=== PATIENT | female | born 1980 | race Two or more races ===

== ENCOUNTER 2017-01-08 12:56 | Emergency (ER) | payer MEDICAID ==
[~2017-01-08] VITALS: Ht 167.6 cm; Wt 99.8 kg
[2017-01-08 13:46] LABS: Basophils # (auto) 0 uL; Basophils % (auto) 0.8 % (0.0-2.0); Eosinophils # (auto) 0.2 uL; Hematocrit 38.1 % (36.0-46.0); Hemoglobin 12.9 g/dL (12.2-16.2); Lymphocytes # (auto) 1.3 uL; Lymphocytes % (auto) 22.6 % (10.0-50.0); Mean Corpuscular Hemoglobin 30.6 pg (28.0-32.0); Mean Corpuscular Hgb Conc. 33.8 g/dL (32.0-36.0); Mean Corpuscular Volume 90.5 fL (80.0-100.0); Mean Platelet Volume 9.3 fL (6.9-10.8); Monocytes # (auto) 0.4 uL; Neutrophils % (auto) 66.6 % (37.0-80.0); Nucleated Red Blood Cells % 0.1 %; Platelet Count (auto) 208 10^3/uL (140-450); Red Cell Distribution Width 13.2 % (11.8-14.3)
[2017-01-08 13:54] LABS: B-Type Natriuretic Peptide 3.24 pg/mL (0-100)
[2017-01-08 13:56] LABS: Albumin 3.5 g/dL (3.4-5.0); Alkaline Phosphatase 69 U/L (45-117); Anion Gap 7 (5-15); Aspartate Aminotransferase 58 U/L (15-37); BUN/Creatinine Ratio 22.5; Bilirubin, Total 0.8 mg/dL (0.2-1.0); Blood Urea Nitrogen 16 mg/dL (7-18); Calcium 8.5 mg/dL (8.5-10.1); Carbon Dioxide 24 mmol/L (21-32); Chloride 109 mmol/L (98-107); GFR African American 121 mL/min; GFR Non-African American 100 mL/min; Glucose 108 mg/dL (74-106); Magnesium 2.6 mg/dL (1.6-2.6); Potassium 3.5 mmol/L (3.5-5.1); Sodium 140 mmol/L (136-145); Total Protein 6.9 g/dL (6.4-8.2)
[2017-01-08 14:50] VITALS: BP 149/66
== END 2017-01-08 15:18 | disposition home or self-care (01) ==
LOC: ER 12:56 → EDBD 12:56 → ER 15:18
DX: R07.89 Other chest pain (principal); R06.02 Shortness of breath; M79.89 Other specified soft tissue disorders; Z98.51 Tubal ligation status; Z59.0 Homelessness
CPT/HCPCS: 36415; 71020; 80053; 83735; 83880; 84484; 85025; 93005

== ENCOUNTER 2017-04-16 00:12 | Emergency (ER) | payer MEDICAID ==
[~2017-04-16] VITALS: Ht 167.6 cm; Wt 99.8 kg
[2017-04-16 01:03] LABS: Basophils # (auto) 0.2 uL; Basophils % (auto) 1.3 % (0.0-2.0); Eosinophils # (auto) 0.1 uL; Eosinophils % (auto) 0.6 % (0.0-7.0); Hematocrit 40.3 % (36.0-46.0); Hemoglobin 13.6 g/dL (12.2-16.2); Lymphocytes # (auto) 0.9 uL; Lymphocytes % (auto) 7.8 % (10.0-50.0); Mean Corpuscular Hemoglobin 30.4 pg (28.0-32.0); Mean Corpuscular Hgb Conc. 33.6 g/dL (32.0-36.0); Mean Corpuscular Volume 90.5 fL (80.0-100.0); Monocytes # (auto) 0.7 uL; Monocytes % (auto) 6.2 % (0.0-12.0); Neutrophils # (auto) 9.8 uL; Neutrophils % (auto) 84.1 % (37.0-80.0); Platelet Count (auto) 242 10^3/uL (140-450); Red Blood Cells 4.46 10^6/uL (4.0-5.20); Red Cell Distribution Width 14.4 % (11.8-14.3); White Blood Cell 11.6 10^3/uL (4.4-10.8)
[2017-04-16 01:13] LABS: Albumin 3.9 g/dL (3.4-5.0); BUN/Creatinine Ratio 14.3; Calcium 8.6 mg/dL (8.5-10.1)
[2017-04-16 01:15] LABS: Bilirubin, Total 0.4 mg/dL (0.2-1.0); Total Protein 7.4 g/dL (6.4-8.2)
[2017-04-16] MEDS ORDERED: LIDOCAINE 1% HCL (LOCAL ANESTH.) INJ 20ML MDV ONE (06:37)
[2017-04-16] MEDS ORDERED: KETOROLAC TROMETH 60MG/2ML VIAL IM ONE ×2 (06:41→06:45)
[2017-04-16 07:50] VITALS: BP 134/86
== END 2017-04-16 07:57 | disposition home or self-care (01) ==
LOC: EDBD 00:12 → ER 00:13
DX: S01.01XA Laceration without foreign body of scalp, initial encounter (principal); S01.81XA Laceration without foreign body of other part of head, initial encounter; S16.1XXA Strain of muscle, fascia and tendon at neck level, initial encounter; S50.12XA Contusion of left forearm, initial encounter; Z98.51 Tubal ligation status; Y08.89XA Assault by other specified means, initial encounter; Y93.89 Activity, other specified; Y99.8 Other external cause status; Y92.89 Other specified places as the place of occurrence of the external cause
CPT/HCPCS: 12002; 12013; 36415; 70450; 70486; 72125; 80053; 80320; 84702; 85025; 93005; 96372; 99285; J1885; J2001

== ENCOUNTER 2017-04-28 20:13 | Emergency (ER) | payer MEDICAID ==
[~2017-04-28] VITALS: Ht 167.6 cm; Wt 99.8 kg
[2017-04-28 20:20] VITALS: BP 108/62
[2017-04-28 21:07] LABS: Basophils # (auto) 0.1 uL; Basophils % (auto) 0.4 % (0.0-2.0); Eosinophils # (auto) 0.1 uL; Eosinophils % (auto) 0.4 % (0.0-7.0); Hematocrit 37.8 % (36.0-46.0); Hemoglobin 12.6 g/dL (12.2-16.2); Lymphocytes # (auto) 1.6 uL; Lymphocytes % (auto) 7.7 % (10.0-50.0); Mean Corpuscular Hemoglobin 29.5 pg (28.0-32.0); Mean Corpuscular Hgb Conc. 33.3 g/dL (32.0-36.0); Mean Corpuscular Volume 88.7 fL (80.0-100.0); Monocytes # (auto) 0.9 uL; Monocytes % (auto) 4.6 % (0.0-12.0); Neutrophils # (auto) 17.5 uL; Neutrophils % (auto) 86.9 % (37.0-80.0); Platelet Count (auto) 350 10^3/uL (140-450); Red Blood Cells 4.27 10^6/uL (4.0-5.20); Red Cell Distribution Width 14.6 % (11.8-14.3); White Blood Cell 20.1 10^3/uL (4.4-10.8)
[2017-04-28 21:29] LABS: Albumin 3.5 g/dL (3.4-5.0); BUN/Creatinine Ratio 12.7; Bilirubin, Total 0.4 mg/dL (0.2-1.0); Calcium 8.8 mg/dL (8.5-10.1); Potassium 3.5 mmol/L (3.5-5.1); Total Protein 7.6 g/dL (6.4-8.2)
== END 2017-04-28 21:46 | disposition left against medical advice (07) ==
LOC: ER 20:13
DX: H57.8 Other specified disorders of eye and adnexa (principal); Z53.21 Procedure and treatment not carried out due to patient leaving prior to being seen by health care provider
CPT/HCPCS: 36415; 80053; 84702; 85025

== ENCOUNTER 2017-05-12 09:26 | Emergency (ER) | payer MEDICAID ==
[~2017-05-12] VITALS: Ht 167.6 cm; Wt 81.6 kg
[2017-05-12 09:30] VITALS: BP 120/84
== END 2017-05-12 10:12 | disposition home or self-care (01) ==
LOC: ER 09:26
DX: S01.81XD Laceration without foreign body of other part of head, subsequent encounter (principal); X58.XXXD Exposure to other specified factors, subsequent encounter

== ENCOUNTER 2018-10-18 00:44 | Emergency (ER) | payer MEDICAID ==
[~2018-10-18] VITALS: Ht 167.6 cm; Wt 99.8 kg
[2018-10-18 01:22] VITALS: BP 128/79
== END 2018-10-18 03:57 | disposition left against medical advice (07) ==
LOC: ER 00:46
DX: S30.860A Insect bite (nonvenomous) of lower back and pelvis, initial encounter (principal); L02.31 Cutaneous abscess of buttock; Z53.21 Procedure and treatment not carried out due to patient leaving prior to being seen by health care provider; W57.XXXA Bitten or stung by nonvenomous insect and other nonvenomous arthropods, initial encounter; Y93.89 Activity, other specified; Y92.89 Other specified places as the place of occurrence of the external cause; Y99.8 Other external cause status

== ENCOUNTER 2022-04-04 19:47 | Emergency (ER) | payer MEDICAID ==
[~2022-04-04] VITALS: Ht 167.6 cm; Wt 120.0 kg
[2022-04-04 20:50] VITALS: BP 148/87
[2022-04-04 21:21] LABS: Basophils # (auto) 0.1 10 ^3/uL (0-0.2); Eosinophils % (auto) 1.9 % (0.0-7.0); Mean Corpuscular Volume 74.5 fL (80.0-100.0); Monocytes # (auto) 0.6 10 ^3/uL (0-1.3)
[2022-04-04 21:22] LABS: Eosinophils # (auto) 0.1 10 ^3/uL (0-0.8); Hematocrit 30.4 % (36.0-46.0); Hemoglobin 9.2 g/dL (12.2-16.2); Lymphocytes # (auto) 2.4 10 ^3/uL (0.4-5.4); Lymphocytes % (auto) 30.6 % (10.0-50.0); Mean Corpuscular Hemoglobin 22.6 pg (28.0-32.0); Mean Corpuscular Hgb Conc. 30.3 g/dL (32.0-36.0); Monocytes % (auto) 7.8 % (0.0-12.0); Neutrophils # (auto) 4.6 10 ^3/uL (1.6-8.6); Neutrophils % (auto) 58.7 % (37.0-80.0); Red Blood Cells 4.08 10^6/uL (4.0-5.20); Red Cell Distribution Width 18.3 % (11.8-14.3); White Blood Cell 7.8 10^3/uL (4.4-10.8)
[2022-04-04 21:36] LABS: INR 1.06 (0.9-1.15); Partial Thromboplastin Time 26.9 sec (24.6-33.4)
[2022-04-04 21:37] LABS: Urine Bacteria NONE SEEN /hpf (None Seen); Urine Blood 3+ /uL (Negative); Urine Mucus FEW (None Seen); Urine WBC 1135 /hpf (0 - 5); Urine WBC Clumps PRESENT /hpf (None Seen)
[2022-04-04] MEDS ORDERED: CIPR-173 PO (21:43)
[2022-04-05] MEDS ORDERED: NAP500T PO (02:18)
== END 2022-04-05 03:57 | disposition home or self-care (01) ==
LOC: ER 19:47
DX: N93.9 Abnormal uterine and vaginal bleeding, unspecified (principal); N39.0 Urinary tract infection, site not specified; R10.2 Pelvic and perineal pain; F41.9 Anxiety disorder, unspecified; F32.9 Major depressive disorder, single episode, unspecified; F10.90 Alcohol use, unspecified, uncomplicated; Z90.89 Acquired absence of other organs
CPT/HCPCS: 36415; 76856; 81001; 84702; 85025; 85610; 85730

== ENCOUNTER 2023-04-10 01:21 | Emergency (ER) | payer MEDICAID ==
[~2023-04-10] VITALS: Ht 170.2 cm; Wt 109.0 kg
[~2023-04-10 01:21] MED LIST: CIPR-173 PO; NAP500T PO
[2023-04-10 01:40] VITALS: BP 125/98; PULSE 104; RESP 20; TEMP 97; O2SAT 99
[2023-04-10 01:58] LABS: Basophils # (auto) 0 10 ^3/uL (0-0.2); Basophils % (auto) 0.6 % (0.0-2.0); Eosinophils # (auto) 0.1 10 ^3/uL (0-0.8); White Blood Cell 7.7 10^3/uL (4.4-10.8)
[2023-04-10 02:00] LABS: Hematocrit 33.5 % (36.0-46.0); Hemoglobin 10.2 g/dL (12.2-16.2); Lymphocytes # (auto) 1.1 10 ^3/uL (0.4-5.4); Lymphocytes % (auto) 14.9 % (10.0-50.0); Mean Corpuscular Hemoglobin 22.3 pg (28.0-32.0); Mean Corpuscular Hgb Conc. 30.6 g/dL (32.0-36.0); Mean Corpuscular Volume 73.1 fL (80.0-100.0); Monocytes # (auto) 0.6 10 ^3/uL (0-1.3); Monocytes % (auto) 7.5 % (0.0-12.0); Neutrophils # (auto) 5.8 10 ^3/uL (1.6-8.6); Red Blood Cells 4.58 10^6/uL (4.0-5.20); Red Cell Distribution Width 17.6 % (11.8-14.3)
[2023-04-10 02:07] LABS: Chloride 102 mmol/L (98-107); Potassium 3.9 mmol/L (3.5-5.1); Sodium 136 mmol/L (136-145)
[2023-04-10 02:08] LABS: Anion Gap 8 (5-15); Calcium 9.3 mg/dL (8.7-10.4); Carbon Dioxide 26 mmol/L (20-30)
[2023-04-10 02:13] LABS: BUN/Creatinine Ratio 12.8 (10.0-20.0); Blood Urea Nitrogen 12 mg/dL (9-23); Glucose 122 mg/dL (74-106)
[2023-04-10] MEDS ORDERED: IBUP-1454 PO (02:50)
[2023-04-10] MEDS ORDERED: MEDR10TA9 PO (02:50)
[2023-04-10 02:55] LABS: Urine Bacteria NONE SEEN /hpf (None Seen)
[2023-04-10] MEDS ORDERED: FERR-7 PO (02:56)
[2023-04-10] MEDS: KETOROLAC TROMETH 60MG/2ML VIAL IM ONE (02:56)
[2023-04-10 03:00] LABS: Urine Clarity Turbid (Clear); Urine Color Dark Red (Yellow); Urine Protein, UAD 2+ (Negative); Urine Specific Gravity 1.033 (1.001-1.035)
[2023-04-10 03:01] LABS: Urine Blood 3+ /uL (Negative); Urine Urobilinogen Normal (Negative); Urine pH 6.5 (5.0-8.0)
[2023-04-10 03:02] LABS: Urine WBC 10 /hpf (0 - 5)
== END 2023-04-10 03:16 | disposition home or self-care (01) ==
LOC: ER 01:21
DX: N93.8 Other specified abnormal uterine and vaginal bleeding (principal); D50.9 Iron deficiency anemia, unspecified; Z32.02 Encounter for pregnancy test, result negative; Z98.51 Tubal ligation status
CPT/HCPCS: 36415; 80048; 81001; 81025; 85025; 96372; 99283; J1885; J7030

== ENCOUNTER 2024-02-11 15:37 | Inpatient (IN) | payer MEDICAID ==
[~2024-02-11] VITALS: Ht 165.1 cm; Wt 129.4 kg
[~2024-02-11 15:37] MED LIST changes: +FERR-7 PO; +IBUP-1454 PO
[2024-02-11] MEDS: methylPREDNISolone SOD SUCC 125 MG/2 ML VL IV ONE (15:45)
--- NOTE | 2024-02-11 15:50 | ED.PDOC ---
History of Present Illness HPI Comments 43F BIBA w/ no prior Hx associated to the c/c of a cold flue. EMS report that the pt was picked up from home and has had a cold flu for the past 2 weeks associated w/ fever, chills, SOB, and hematemesis. Pt on scene had a SAT of 88% RA and was given 15L of O2 and it went up to 96% w/ congestion. Pt notes that she has some family members who are sick at home. PMHx of depression, anxiety, HTN and DM. SHx of Tubal Ligation, BTL and Tonsillectomy. Social Hx of second hand tobacco use, but denies alcohol and substance use. Family Hx of DM and HTN. Denies /d, CP or other associated symptom's, modifiers, or recent injuries at this time. Time Seen by MD: 15:40 Primary Care Provider: GALIK Reviewed Notes: Nurses Notes, Stiff Straw Hat Washer Notes, Medications, Allergies Allergies: Coded Allergies: NO KNOWN ALLERGIES (Unverified , 10/11/11) Home Meds Active Scripts Ferrous Sulfate (Iron) 325 Mg Tab, 325 MG PO TID for 30 Days, #90 TAB Prov:VALORIE GALAVIZ PAC 04/10/23 Ibuprofen (Ibuprofen) 600 Mg Tab, 1 TAB PO TID, #30 TAB Prov:VALORIE GALAVIZ [facility] 04/10/23 Naproxen (NAPROSYN TABLET) 500 Mg Tb, 1 TAB PO BID for 7 Days, #14 TAB 1 Refill Prov:CHASIDY TO DO 04/05/22 Ciprofloxacin Hcl (Cipro) 500 Mg Tab, 1 TAB PO BID, #14 TAB Prov:ROSANA SHELTON MD 04/04/22 Information Source: Patient, Emergency Med Personnel Mode of Arrival: EMS Severity: Moderate Timing: Weeks Duration: Since onset Prehospital treatment: None Past Medical History PAST MEDICAL HISTORY: Anxiety, Depression, DM, HTN Surgical History: BTL, Tonsillectomy, Tubal Ligation PROPERTY MANAGEMENT ACCOUNTANT History: No Pertinent PROPERTY MANAGEMENT ACCOUNTANT History Family History Family History: Reviewed,noncontributory to illness, Family hx of DM, Family hx of HTN Social History Smoker: Secondhand Alcohol: Denies ETOH Use Drugs: Denies Drug Use Lives In: Home Constitutional: reports: chills, fever; denies: diaphoresis, fatigue, malaise, sweats, weakness, others EENTM: denies: blurred vision, double vision, ear bleeding, ear discharge, ear drainage, ear pain, ear ringing, eye pain, eye redness, hearing loss, mouth pain, mouth swelling, nasal discharge, nose bleeding, nose congestion, nose pain, photophobia, tearing, throat pain, throat swelling, voice changes, others Respiratory: reports: shortness of breath; denies: cough, hemoptysis, orthopnea, SOB at rest, SOB with excertion, stridor, wheezing, others Cardiovascular: denies: chest pain, dizzy spells, diaphoresis, Dyspnea on exertion, edema, irregular heart beat, left arm pain, lightheadedness, palpitations, PND, syncope, others Gastrointestinal: reports: hematemesis, nausea, vomiting; denies: abdomen distended, abdominal pain, blood streaked bowels, constipated, diarrhea, dysphagia, difficulty swallowing, melena, poor appetite, poor fluid intake, rectal bleeding, rectal pain, others Genitourinary: denies: abnormal vagina bleeding, burning, dyspareunia, dysuria, flank pain, frequency, hematuria, incontinence, pain, , vagina discharge, urgency, others Neurological: denies: dizziness, fainting, headache, left sided numbness, left sided weakness, numbness, paresthesia, pre-existing deficit, right sided numbness, right sided weakness, seizure, speech problems, tingling, tremors, weakness, others Musculoskeletal: denies: back pain, gout, joint pain, joint swelling, muscle pain, muscle stiffness, neck pain, others Integumetry: denies: bruises, change in color, change in hair/nails, dryness, laceration, lesions, lumps, rash, wounds, others Allergic/Immunocompromised: denies: Difficulty Healing, Frequent Infections, Hives, Itching, others Hematologic/Lymphatic: denies: anemia, blood clots, easy bleeding, easy bruising, swollen glands, others Endocrine: denies: excessive hunger, excessive sweating, excessive thirst, excessive urination, flushing, intolerance to cold, intolerance to heat, unexplained weight gain, unexplained weight loss, others Psychiatric: denies: anxiety, bipolar disorder, depression, hopeless, panic disorder, schizophrenia, sleepless, suicidal, others All Other Systems: Reviewed and Negative Physical Exam General Appearance: Moderate Distress HEENT: Pale Conjuntivae (L), Pale Conjuntivae (R), Pharynx Normal, TMs Normal Neck: Full Range of Motion, Non-Tender, Normal, Normal Inspection Respiratory: Accessory Muscle Use, Decreased Breath Sounds, Respiratory Distress Cardiovascular: No Edema, No JVD, No Murmur, No Gallop, Tachycardia Breast Exam: Deferred Gastrointestinal: No Organomegaly, Non Tender, No Pulsatile Mass, Normal Bowel Sounds, Soft Genitalia: Deferred Pelvic: Deferred Rectal: Deferred Extremities: No calf tenderness, Normal capillary refill, Normal inspection, Normal range of motion, Non-tender, No pedal edema Musculoskeletal : Apperance: Normal Neurologic: Alert, director talent acquisition II-XII nml as Tested, No Motor Deficits, Normal Affect, Normal Mood, No Sensory Deficits Cerebellar Function: Normal Reflexes: Normal Skin: Dry, Normal Color, Warm Lymphatic: No Adenopathy Was a procedure done? Was a procedure done?: No EKG EKG : Pulse Rate (adult): 139 Ross: Normal Cardiac Rhythm: ST Block: None Hypertrophy: None ST: Normal Differential Dx Considerations may include: Pneumonia, PE, COVID-19, respiratory failure X-Ray, Labs, Meds, VS Vital Signs Date Time Temp Pulse Resp B/P (MAP) Pulse Ox O2 Delivery O2 Flow Rate FiO2 02/11/24 19:24 98.6 02/11/24 19:16 98.5 109 25 103/61 (75) 93 98.5 02/11/24 18:20 115 25 94 Oxymizer 12 N/A 02/11/24 18:03 122 25 103/61 (75) 02/11/24 17:43 100.2 02/11/24 17:00 102.7 130 30 103/58 (73) 99 102.7 02/11/24 15:50 139 02/11/24 15:49 96.6 142 32 120/82 (95) 96 02/11/24 15:47 139 Lab Test 02/11/24 18:08 02/11/24 16:03 02/11/24 15:48 Range/Units Lactic Acid Level 6.3 *H 5.1 *H 0.4-2.0 mmol/L White Blood Count 24.5 H 4.4-10.8 10^3/uL Red Blood Count 4.79 4.0-5.20 10^6/uL Hemoglobin 10.1 L 12.2-16.2 g/dL Hematocrit 34.4 L 36.0-46.0 % Mean Corpuscular Volume 71.8 L 80.0-100.0 fL Mean Corpuscular Hemoglobin 21.0 L 28.0-32.0 pg Mean Corpuscular Hemoglobin Concent 29.3 L 32.0-36.0 g/dL Red Cell Distribution Width 17.7 H 11.8-14.3 % Platelet Count 181 140-450 10^3/uL Mean Platelet Volume 9.6 6.9-10.8 fL Neutrophils (%) (Auto) 89.5 H 37.0-80.0 % Lymphocytes (%) (Auto) 5.9 L 10.0-50.0 % Monocytes (%) (Auto) 4.5 0.0-12.0 % Eosinophils (%) (Auto) 0.0 0.0-7.0 % Basophils (%) (Auto) 0.1 0.0-2.0 % Neutrophils # (Auto) 22.0 H 1.6-8.6 10 ^3/uL Lymphocytes # (Auto) 1.4 0.4-5.4 10 ^3/uL Monocytes # (Auto) 1.1 0-1.3 10 ^3/uL Eosinophils # (Auto) 0 0-0.8 10 ^3/uL Basophils # (Auto) 0 0-0.2 10 ^3/uL Nucleated Red Blood Cells 0.1 % D-Dimer, Quantitative 2.46 H 0.0-0.49 mg/L FEU Sodium Level 132 L 136-145 mmol/L Potassium Level 3.6 3.5-5.1 mmol/L Chloride Level 98 98-107 mmol/L Carbon Dioxide Level 20 20-31 mmol/L Anion Gap 14 5-15 Blood Urea Nitrogen 28 H 9-23 mg/dL Creatinine 1.48 H 0.550-1.02 mg/dL Glomerular Filtration Rate Calc 45 >90 mL/min BUN/Creatinine Ratio 18.9 10.0-20.0 Serum Glucose 158 H 74-106 mg/dL Calcium Level 8.1 L 8.7-10.4 mg/dL Troponin I High Sensitivity 47 *H </=34 ng/L B-Type Natriuretic Peptide 69.99 0-100 pg/mL Influenza Type A Antigen Negative Negative Influenza Type B Antigen Negative Negative SARS-CoV-2 Antigen (Rapid) Negative NEGATIVE Current Medications Medications (Trade) Dose Ordered Sig/Blaze Route Start Time Stop Time Status Last Admin Methylprednisolone Sodium Succinate (Solu Medrol) 125 mg ONCE ONCE IV 02/11/24 15:45 02/11/24 15:46 DC 02/11/24 15:45 Sodium Chloride 1,850 ml @ 1,850 mls/hr ONCE ONCE IV 02/11/24 17:00 02/11/24 17:59 DC 02/11/24 17:28 Vancomycin HCl 250 ml @ 250 mls/hr ONCE ONCE IV 02/11/24 17:00 02/11/24 17:59 DC 02/11/24 17:28 Ceftriaxone Sodium 50 ml @ 100 mls/hr ONCE ONCE IV 02/11/24 17:00 02/11/24 17:29 DC 02/11/24 17:28 Acetaminophen (Tylenol Tablet) 650 mg ONCE ONCE PO 02/11/24 17:45 02/11/24 17:46 DC 02/11/24 17:43 IV Hep-Lock was established. The patient arrived and was given Solu-Medrol 125 mg IV push immediately The patient continued to have a significant amount of respiratory distress so the patient was then moved to the treatment area. The patient's COVID test as well as influenza a and influenza B are negative The troponin level is elevated at 47. The BNP is within normal range. The chemistry panel shows a BUN of 28 a creatinine of 1.48 Because the D-dimer is elevated at 2.46, we ordered a CT scan of the chest to rule out PE The patient's troponin levels have been slightly trending upwards. The lactic acid level came back initially at 5.1 and then went up to 6.3 We did order sepsis protocol on this patient. The patient received normal saline per sepsis protocol and then was started on vancomycin as well as ceftriaxone. For the fever, patient was given acetaminophen 650 mg by mouth The patient's white blood cell count came up elevated at 24.5 with a hemoglobin shows anemia at 10.1 The patient will be admitted at this time. The CT scan of the chest to rule out PE shows: IMPRESSION: 1. Poor opacification pulmonary artery to exclude pulmonary emboli. No saddle embolus visualized. 2. Consolidation retrocardiac area left lower lobe consistent with infiltrate or atelectasis. 3. Small left pleural effusion. At this time, the patient will be admitted Images Reviewed?: Images reviewed and evaluated by me Time of 1ST Reevaluation: 16:10 Reevaluation 1ST: Unchanged Time of 2ND Reevaluation: 20:12 Reevaluation 2ND: Improved Patient Education/Counseling: Diagnosis, Treatment, Prognosis Family Education/Counseling: No Family Present Departure 1 Departure Time of Disposition: 20:11 Impression: Primary Impression: Acute respiratory failure Qualified Codes: J96.01 - Acute respiratory failure with hypoxia Additional Impressions: Elevated troponin Elevated d-dimer Bilateral pneumonia Qualified Codes: J18.9 - Pneumonia, unspecified organism Sepsis Qualified Codes: A41.9 - Sepsis, unspecified organism Disposition: ADMITTED INPATIENT Admit to: [facility] [place] Condition: Fair Critical Care Note Critical Care Time?: Yes (35 min-critical care time only) Stability Stability form required: Yes Unstable for transfer: Telemetry monitoring (Telemetry monitoring required), ED Physician Assesment (Clinical assesment) Heart Score Heart Score: Heart Score Response (Comments) Value History Highly Suspicious 2 EKG Repolarization Disturb 1 Age <45 0 Risk Factors 1 or 2 risk factors 1 Troponin 1-2 x's Normal limit 1 Total 5 I personally scribed for ROSANA SHELTON MD ([email or web address]) on 02/11/24 at 15:50. Electronically submitted by Phoenix Berrios ([email or web address]). ROSANA SHELTON MD Feb 11, 2024 15:50
--- NOTE | 2024-02-11 16:09 | DVH ---
EXAM: XY CHEST PORTABLE TECHNIQUE: Single frontal chest radiograph CLINICAL HISTORY: sob COMPARISON: None Findings/Impression: Frontal chest radiograph demonstrates no acute osseous or superficial soft tissue abnormalities. The trachea is midline. The cardiac silhouette and mediastinum are within normal limits. Left basilar atelectasis versus developing infection. No pneumothorax or pleural effusions.
[2024-02-11 16:25] LABS: Basophils # (auto) 0 10 ^3/uL (0-0.2); Basophils % (auto) 0.1 % (0.0-2.0); Eosinophils # (auto) 0 10 ^3/uL (0-0.8); Mean Corpuscular Hgb Conc. 29.3 g/dL (32.0-36.0); Monocytes # (auto) 1.1 10 ^3/uL (0-1.3); Red Blood Cells 4.79 10^6/uL (4.0-5.20)
[2024-02-11 16:26] LABS: Hematocrit 34.4 % (36.0-46.0); Hemoglobin 10.1 g/dL (12.2-16.2); Lymphocytes # (auto) 1.4 10 ^3/uL (0.4-5.4); Lymphocytes % (auto) 5.9 % (10.0-50.0); Mean Corpuscular Volume 71.8 fL (80.0-100.0); Monocytes % (auto) 4.5 % (0.0-12.0); Neutrophils % (auto) 89.5 % (37.0-80.0); Nucleated Red Blood Cells % 0.1 %; Platelet Count (auto) 181 10^3/uL (140-450); Red Cell Distribution Width 17.7 % (11.8-14.3); White Blood Cell 24.5 10^3/uL (4.4-10.8)
[2024-02-11 16:35] LABS: Anion Gap 14 (5-15); Carbon Dioxide 20 mmol/L (20-31)
[2024-02-11 16:40] LABS: BUN/Creatinine Ratio 18.9 (10.0-20.0)
[2024-02-11 16:41] LABS: Blood Urea Nitrogen 28 mg/dL (9-23); Calcium 8.1 mg/dL (8.7-10.4); Chloride 98 mmol/L (98-107); Glucose 158 mg/dL (74-106); Potassium 3.6 mmol/L (3.5-5.1); Sodium 132 mmol/L (136-145)
[2024-02-11 16:44] LABS: Lactic Acid w/Reflex 5.1 mmol/L (0.4-2.0)
[2024-02-11 17:21] LABS: COVID19 ANTIGEN SOFIA FIA NEGATIVE (NEGATIVE); Rapid Influenza A Negative (Negative); Rapid Influenza B Negative (Negative)
[2024-02-11] MEDS: cefTRIAXone 1GM/50ML D5W 50 ML IV ONE (17:28)
[2024-02-11] MEDS: VANCOMYCIN 1GM/250ML KIT 250 ML IV ONE (17:28)
[2024-02-11] MEDS: SODIUM CHLORIDE 0.9% 1,850 ML IV ONE (17:28)
[2024-02-11] MEDS: ACETAMINOPHEN 325 MG TAB PO ONE (17:43)
[2024-02-11 18:20] VITALS: PULSE 115; RESP 25; O2SAT 94
[2024-02-11] MEDS: IOHEXOL 350 MG/ML 100ML IJ ONE (18:32)
--- NOTE | 2024-02-11 19:13 | DVH ---
Procedure: CT CT ANGIO CHEST CONTRAST Reason for study/Clinical History: sob and cp Comparison Study: None available at time of dictation. Exam Date: 02/11/2024 06:43 PM Radiation Dose Information: CT Dose: CTDI volume is 28.91 mGy. Dose-length product is 967.43 mGy*cm Contrast: Type of contrast: Omnipaque 350 Contrast inject: 100 mL Contrast wasted:0 TECHNIQUE: After the uneventful administration of intravenous contrast intravenously, CT imaging was performed through the chest. Coronal and sagittal reformations were performed by the technologist. Co valorie MIP images were created for review. FINDINGS: Lower Neck: Visualized portions of the thyroid gland are unremarkable. Aorta and Vasculature: Normal caliber of thoracic aorta. Inadequate opacification of pulmonary artery to exclude pulmonary emboli. Opacification required 266 HU: Opacification achieved 186 HU ) there a re no large filling defects in the main pulmonary artery or right or left pulmonary arteries there ar e no findings to suggest saddle embolus. Lymph Nodes: No enlarged intrathoracic lymph nodes. Mediastinum: Heart size is normal. There is no pericardial effusion. The esophagus is unremarkable. Lungs: Consolidation and atelectasis left lower lobe retrocardiac area. Musculoskeletal: No acute osseous abnormality. Upper abdomen: Limited portions of the upper abdomen are unremarkable. IMPRESSION: 1. Poor opacification pulmonary artery to exclude pulmonary emboli. No saddle embolus visualized. 2. Consolidation retrocardiac area left lower lobe consistent with infiltrate or atelectasis. 3. Small left pleural effusion. HS:Y All CT scans at this medical facility are performed using dose modulation techniques as appropriate t o a performed exam including the following: Automated exposure control was utilized; adjustment of th e MA and/or KV according to patient size; and use of iterative reconstruction technique.
[2024-02-11] MEDS ORDERED: ALBUTEROL SULF 2.5 MG/0.5ML(0.5%) NEB SOLN NEB PRN (19:30)
[2024-02-11] MEDS ORDERED: ONDANSETRON HCL 4 MG/2 ML VIAL IV PRN (19:30)
[2024-02-11] MEDS ORDERED: TEMAZEPAM 15 MG CAP PO PRN (19:30)
[2024-02-11] MEDS ORDERED: NITROGLYCERIN 0.4 MG SL TAB SL PRN (19:30)
[2024-02-11] MEDS ORDERED: MORPHINE SULFATE INJ 2 MG/ml SYRG IV PRN (19:30)
[2024-02-11 20:35] VITALS: BP 103/58; PULSE 130; RESP 20; O2SAT 98
[2024-02-11] MEDS ORDERED: VANCOMYCIN PER PHARMACY 0 MG IV SCH (21:15)
[2024-02-11] MEDS: SODIUM CHLORIDE 0.9% 1,000 ML IV SCH (21:15)
[2024-02-11] MEDS: methylPREDNISolone SOD SUCC 40 MG/ML VL IV SCH (22:00)
--- NOTE | 2024-02-11 22:09 | DVH ---
BILATERAL LOWER EXTREMITY VENOUS DOPPLER ULTRASOUND CLINICAL HISTORY: ELEV D DIMER, SOB TECHNIQUE: Grayscale ultrasound with compression, color Doppler flow imaging with pulsed duplex sonog luís of the bilateral lower extremity deep venous system from the common femoral veins through the p opliteal veins is performed. COMPARISON: None FINDINGS: Right common femoral vein: Negative. Right greater saphenous vein: Negative. Right deep femoral vein: Negative. Right femoral vein: Negative. Right popliteal vein: Negative. Left common femoral vein: Negative. Left greater saphenous vein: Negative. Left deep femoral vein: Negative. Left femoral vein: Negative. Left popliteal vein: Negative. Other: Bilateral popliteal trifurcation and posterior tibial veins demonstrate color flow as well. IMPRESSION: No sonographic evidence of deep venous thrombosis in either lower extremity at this time.
[2024-02-11 22:12] LABS: Urine Bacteria None Seen /hpf (None Seen)
[2024-02-11 22:21] LABS: Urine Blood 1+ /uL (Negative); Urine Clarity Turbid (Clear); Urine Color Yellow (Yellow); Urine Hyaline Cast FEW /lpf (0 - 2); Urine Mucus FEW (None Seen); Urine Protein, UAD 1+ (Negative); Urine Specific Gravity 1.042 (1.001-1.035); Urine Urobilinogen Normal (Negative); Urine WBC 2 /hpf (0 - 5)
--- NOTE | 2024-02-11 23:46 | DVHHP2 ---
History of Present Illness Reason for Visit: Shortness of breath History of Present Illness 43-year-old female presents for evaluation of shortness for breath. Patient presents with a one day history of flu-like symptoms including chills, shortness for breath and a nonproductive cough. She states the symptoms became worse today so she presented for further evaluation. Past Medical History Hypertension, depression and diabetes mellitus Past Surgical History Tonsillectomy, tubal ligation and BTL Family History Diabetes mellitus and hypertension Smoke: No ALCOHOL: none Drugs: None Review of Systems Review of Systems Review of systems are currently negative otherwise addressed in HPI. Allergies: Coded Allergies: NO KNOWN ALLERGIES (Unverified , 10/11/11) Medications Current Medications Medications Dose Ordered Sig/Blaze Route Start Time Stop Time Status Last Admin Dose Admin Aspirin 162 mg DAILY PO 02/12/24 10:00 Temazepam 15 mg QHSP PRN PO 02/11/24 19:30 Ondansetron HCl 4 mg Q4HP PRN IV 02/11/24 19:30 Acetaminophen 650 mg Q6HP PRN PO 02/11/24 19:30 Nitroglycerin 0.4 mg Q5MINP PRN SL 02/11/24 19:30 Morphine Sulfate 2 mg Q30M PRN IV 02/11/24 19:30 Piperacillin Sod/ Tazobactam Sod 100 ml @ 25 mls/hr Q8HR IV 02/12/24 06:00 Vancomycin HCl 0 ml @ 0 mls/hr UD IV 02/11/24 21:15 UNV Sodium Chloride 1,000 ml @ 90 mls/hr Q11H7M IV 02/11/24 21:15 02/11/24 21:15 90 MLS/HR Albuterol 2.5 mg Q6HPRN PRN NEB 02/11/24 21:15 Methylprednisolone Sodium Succinate 40 mg BID IV 02/11/24 22:00 02/11/24 22:00 40 MG Exam Vital Signs Vital Signs Date Time Temp Pulse Resp B/P (MAP) Pulse Ox O2 Delivery O2 Flow Rate FiO2 02/11/24 20:35 130 20 103/58 98 0.0 95 02/11/24 20:12 98.8 98.8 02/11/24 18:20 Oxymizer Exam Gen: 43-year-old female in mild distress, morbidly obese Skin: Warm, dry, normal color and texture, no rash. HEENT: Normocephalic atraumatic, mucous membranes moist and pink. Neck: Cervical and supraclavicular nodes normal without enlargement, trachea is midline, thyroid gland is normal without masses. Pulmonary: Diminished breath sounds bilaterally Cardiac: Sinus tachycardia Abdomen: Soft, nontender, nondistended, bowel sounds present all 4 quadrants, no guarding, no rigidity, no organomegaly. Extremities: No cyanosis, clubbing, no edema Neuro: Cranial nerves II through XII grossly intact, normal affect and speech, no focal motor deficits. Labs/Xrays ORDERING PHYSICIAN: TERESA PINO PROCEDURE(s): BLDVT - BiLat Lower DVT REASON: ELEV D DIMER, SOB ORDER NUMBER(s): [id number], ACCESSION NUMBER(s): [id number] BILATERAL LOWER EXTREMITY VENOUS DOPPLER ULTRASOUND CLINICAL HISTORY: ELEV D DIMER, SOB TECHNIQUE: Grayscale ultrasound with compression, color Doppler flow imaging with pulsed duplex sonography of the bilateral lower extremity deep venous system from the common femoral veins through the popliteal veins is performed. COMPARISON: None FINDINGS: Right common femoral vein: Negative. Right greater saphenous vein: Negative. Right deep femoral vein: Negative. Right femoral vein: Negative. Right popliteal vein: Negative. Left common femoral vein: Negative. Left greater saphenous vein: Negative. Left deep femoral vein: Negative. Left femoral vein: Negative. Left popliteal vein: Negative. Other: Bilateral popliteal trifurcation and posterior tibial veins demonstrate color flow as well. IMPRESSION: No sonographic evidence of deep venous thrombosis in either lower extremity at this time. RING PHYSICIAN: ROSANA SHELTON MD PROCEDURE(s): CTACH - CT ANGIO CHEST CONTRAST REASON: sob and cp ORDER NUMBER(s): [id number], ACCESSION NUMBER(s): [id number] Procedure: CT CT ANGIO CHEST CONTRAST Reason for study/Clinical History: sob and cp Comparison Study: None available at time of dictation. Exam Date: 02/11/2024 06:43 PM Radiation Dose Information: CT Dose: CTDI volume is 28.91 mGy. Dose-length product is 967.43 mGy*cm Contrast: Type of contrast: Omnipaque 350 Contrast inject: 100 mL Contrast wasted:0 TECHNIQUE: After the uneventful administration of intravenous contrast intravenously, CT imaging was performed through the chest. Coronal and sagittal reformations were performed by the technologist. Coronal MIP images were created for review. FINDINGS: Lower Neck: Visualized portions of the thyroid gland are unremarkable. Aorta and Vasculature: Normal caliber of thoracic aorta. Inadequate opacification of pulmonary artery to exclude pulmonary emboli. Opacification required 266 HU: Opacification achieved 186 HU ) there are no large filling defects in the main pulmonary artery or right or left pulmonary arteries there are no findings to suggest saddle embolus. Lymph Nodes: No enlarged intrathoracic lymph nodes. Mediastinum: Heart size is normal. There is no pericardial effusion. The esophagus is unremarkable. Lungs: Consolidation and atelectasis left lower lobe retrocardiac area. Musculoskeletal: No acute osseous abnormality. Upper abdomen: Limited portions of the upper abdomen are unremarkable. IMPRESSION: 1. Poor opacification pulmonary artery to exclude pulmonary emboli. No saddle embolus visualized. 2. Consolidation retrocardiac area left lower lobe consistent with infiltrate or atelectasis. 3. Small left pleural effusion. HS:Y All CT scans at this medical facility are performed using dose modulation techniques as appropriate to a performed exam including the following: Automated exposure control was utilized; adjustment of the MA and/or KV according to patie nt size; and use of iterative reconstruction technique. Labs Test 02/11/24 22:20 02/11/24 22:05 02/11/24 18:08 02/11/24 16:03 Range/Units Troponin I High Sensitivity 59 *H </=34 ng/L Urine Color Yellow Yellow Urine Clarity Turbid H Clear Urine pH 5.0 5.0-9.0 Urine Specific [place] 1.042 H 1.001-1.035 Urine Protein 1+ H Negative Urine Ketones Trace Negative Urine Blood 1+ H Negative /uL Urine Nitrite Negative Negative Urine Bilirubin Negative Negative Urine Urobilinogen Normal Negative mg/dL Urine Leukocyte Esterase Negative Negative /uL Urine RBC 9 0 - 4 /hpf Urine WBC 2 0 - 5 /hpf Urine Squamous Epithelial Cells Few <5 /hpf Urine Bacteria None seen None Seen /hpf Urine Hyaline Casts Few 0 - 2 /lpf Urine Granular Casts Few 0 /lpf Urine Mucus Few None Seen Urine Glucose Normal Normal mg/dL Lactic Acid Level 6.3 *H 0.4-2.0 mmol/L White Blood Count 24.5 H 4.4-10.8 10^3/uL Red Blood Count 4.79 4.0-5.20 10^6/uL Hemoglobin 10.1 L 12.2-16.2 g/dL Hematocrit 34.4 L 36.0-46.0 % Mean Corpuscular Volume 71.8 L 80.0-100.0 fL Mean Corpuscular Hemoglobin 21.0 L 28.0-32.0 pg Mean Corpuscular Hemoglobin Concent 29.3 L 32.0-36.0 g/dL Red Cell Distribution Width 17.7 H 11.8-14.3 % Platelet Count 181 140-450 10^3/uL Mean Platelet Volume 9.6 6.9-10.8 fL Neutrophils (%) (Auto) 89.5 H 37.0-80.0 % Lymphocytes (%) (Auto) 5.9 L 10.0-50.0 % Monocytes (%) (Auto) 4.5 0.0-12.0 % Eosinophils (%) (Auto) 0.0 0.0-7.0 % Basophils (%) (Auto) 0.1 0.0-2.0 % Neutrophils # (Auto) 22.0 H 1.6-8.6 10 ^3/uL Lymphocytes # (Auto) 1.4 0.4-5.4 10 ^3/uL Monocytes # (Auto) 1.1 0-1.3 10 ^3/uL Eosinophils # (Auto) 0 0-0.8 10 ^3/uL Basophils # (Auto) 0 0-0.2 10 ^3/uL Nucleated Red Blood Cells 0.1 % D-Dimer, Quantitative 2.46 H 0.0-0.49 mg/L FEU Sodium Level 132 L 136-145 mmol/L Potassium Level 3.6 3.5-5.1 mmol/L Chloride Level 98 98-107 mmol/L Carbon Dioxide Level 20 20-31 mmol/L Anion Gap 14 5-15 Blood Urea Nitrogen 28 H 9-23 mg/dL Creatinine 1.48 H 0.550-1.02 mg/dL Glomerular Filtration Rate Calc 45 >90 mL/min BUN/Creatinine Ratio 18.9 10.0-20.0 Serum Glucose 158 H 74-106 mg/dL Calcium Level 8.1 L 8.7-10.4 mg/dL B-Type Natriuretic Peptide 69.99 0-100 pg/mL Test 02/11/24 15:48 Range/Units Influenza Type A Antigen Negative Negative Influenza Type B Antigen Negative Negative SARS-CoV-2 Antigen (Rapid) Negative NEGATIVE Assessment/Plan Assessment/Plan Assessment Sepsis Community-acquired pneumonia Diabetes mellitus Hypertension Acute kidney injury Morbid obesity Elevated troponin, questionable demand ischemia Plan Admit the patient to telemetry to the hospitalist Maintenance IV fluids Zosyn/vancomycin Med nebs Resume home medications Echocardiogram pending Continue treatment per orders. Plan discussed with: Patient My Orders Orders - TERESA PINO Procedure Category Date Status Time Aspirin Tablet PHA 02/12/24 In Process 10:00 Admit ADMIT 02/11/24 Transmitted 19:29 Temazepam (Restoril) PHA 02/11/24 In Process 19:30 Ondansetron Hcl PHA 02/11/24 In Process (Zofran) 19:30 Complete Blood Count LAB 02/12/24 Verified 04:00 Cardiac DIET 02/12/24 Transmitted Diet-2gna,Lofat,Lochol Breakfast Condition: Fair SKY 02/11/24 In Process 19:29 Acetaminophen Tablet PHA 02/11/24 In Process (Tylenol Tablet) 19:30 Bedrest With Bathroom SKY 02/11/24 In Process Privileg 19:29 Nitroglycerin [facility] 02/11/24 In Process Sublingual (Ntrostat 19:30 Morphine Sulfate PHA 02/11/24 In Process Injection 19:30 Stat Ekg For Chest [facility] 02/11/24 In Process Pain 19:29 Notify Md Of Changes [facility] 02/11/24 In Process From Base 19:29 Bridal Gown Fitter For [facility] 02/11/24 In Process 24 Hours 19:29 Emergency Dysrhythmia SKY 02/11/24 In Process Protocol 19:29 Rhythm Strips Once [facility] 02/11/24 In Process Every Shift 19:29 Oxygen By Nasal RT 02/11/24 Transmitted Cannula 19:29 Bilat Lower Dvt US 02/11/24 Resulted 21:14 Vancomycin Per PHA 02/11/24 Pending Pharmacy 21:15 Sodium Chloride 0.9% PHA 02/11/24 In Process 21:15 Albuterol Medneb PHA 02/11/24 In Process (Ventolin Medneb) 21:15 Methylprednisolone PHA 02/11/24 In Process Sod Succ (Solu Medrol 22:00 Comprehensive LAB 02/12/24 Verified Metabolic Panel 04:00 Piperacillin-Tazob PHA 02/12/24 In Process 3.375gm (Zosyn 3.375g 06:00 Date of Service: Feb 11, 2024 Billing Provider: TERESA PINO Common Visit Codes: [id number] INP/OBS CARE (HIGH) TERESA PINO Feb 11, 2024 23:46
[2024-02-12] VITALS (14 sets, daily range): BP systolic 95–195; BP diastolic 49–134; PULSE 72–104; RESP 17–24; TEMP 97.4–98.8; O2SAT 91–99
[2024-02-12] MEDS: VANCOMYCIN 1GM/250mL NS or D5W KIT IV ONE (00:05)
[2024-02-12] MEDS: ALBUTEROL SULF 2.5 MG/0.5ML(0.5%) NEB SOLN NEB PRN (02:03)
[2024-02-12] MEDS: PIPERACILLIN-TAZOB 3.375GM 100 ML IV SCH (06:08)
[2024-02-12 07:19] LABS: Mean Corpuscular Volume 70.9 fL (80.0-100.0)
[2024-02-12 07:20] LABS: Hemoglobin 9.4 g/dL (12.2-16.2); Mean Corpuscular Hemoglobin 21.5 pg (28.0-32.0); Mean Corpuscular Hgb Conc. 30.3 g/dL (32.0-36.0); Platelet Count (auto) 131 10^3/uL (140-450); Red Blood Cells 4.38 10^6/uL (4.0-5.20); White Blood Cell 12.6 10^3/uL (4.4-10.8)
[2024-02-12 07:23] LABS: Basophils % (manual) 0 (0.0-2.0); Blast Cells 0; Eosinophils % (manual) 0 (0-7); Metamyelocytes % 0; Myelocytes % 0; Promyelocytes % 0; Reactive Lymphocytes 0
[2024-02-12 07:31] LABS: Alanine Aminotransferase 34 U/L (7-40); Albumin 3.8 g/dL (3.2-4.8); Alkaline Phosphatase 68 U/L (46-116); Anion Gap 6 (5-15); Bilirubin, Total 0.8 mg/dL (0.2-1.0); Carbon Dioxide 26 mmol/L (20-31); Chloride 103 mmol/L (98-107); Potassium 3.8 mmol/L (3.5-5.1); Total Protein 7.4 g/dL (5.7-8.2)
[2024-02-12 07:32] LABS: Blood Urea Nitrogen 24 mg/dL (9-23); Glucose 367 mg/dL (74-106); Sodium 135 mmol/L (136-145)
[2024-02-12 07:33] LABS: Aspartate Aminotransferase 52 U/L (13-40); Calcium 8.3 mg/dL (8.7-10.4)
[2024-02-12 07:57] LABS: Band Neutrophils % (manual) 1; Lymphocytes % (manual) 19 (10.0-50.0); Monocytes % (manual) 1 (0-12); Platelet Estimate Decreased
[2024-02-12] MEDS ORDERED: SODIUM CHLORIDE 0.9% 1,000 ML IV ONE (08:30)
[2024-02-12 08:50] LABS: INR 1.42 (0.9-1.15); Prothrombin Time 14.7 sec (9.3-11.8)
[2024-02-12] MEDS ORDERED: cefTRIAXone 1GM/50ML D5W 50 ML IV SCH (09:00)
[2024-02-12] MEDS ORDERED: AZITHROMYCIN 500MG/ 250ML 250 ML IV SCH (10:00)
[2024-02-12] MEDS ORDERED: ASPirin 81 mg TAB PO SCH (10:00)
[2024-02-12] MEDS: ENOXAPARIN SOD 40 MG/0.4 ML SYRINGE SC SCH (12:41)
[2024-02-12] MEDS: VANCOMYCIN 1GM/250ML KIT 250 ML IV ONE (12:41)
[2024-02-12] MEDS ORDERED: IPRATROPIUM BROM 0.5 MG/2.5ML INH SOL NEB PRN (12:45)
[2024-02-12] MEDS ORDERED: DEXTROSE (50%) 50ML SYRG IV PRN ×2 (13:00→17:30)
[2024-02-12 13:06] LABS: Creatine Kinase IFCC 1201 U/L (34-145)
[2024-02-12 13:07] LABS: Blood Alcohol < 3.0 mg/dL (<10)
[2024-02-12] MEDS: KETOROLAC TROMETH 30 MG/ML 1ML VIAL IV PRN (13:08)
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
[2024-02-12 13:31] LABS: Amphetamine Screen, Urine Pos (NEGATIVE); Barbiturate Scree,Urine Neg (NEGATIVE); Benzodiazephine Screen, Urine Neg (NEGATIVE); Cocaine Screen, Urine Neg (NEGATIVE); Opiate Scree,Urine Neg (NEGATIVE); Phencyclidine Screen, Urine Neg (NEGATIVE)
[2024-02-12 13:44] LABS: Cannabinoid Screen, Urine Neg (NEGATIVE)
--- NOTE | 2024-02-12 13:46 | ECG ---
[facility] Test Date: 2024-02-11 Test Time: 15:47:51 Pat Name: SOLITARIO HINES Department: er Room: 0294T A Gender: F Salt Lifter: rolf : 1980 Requested By: ROSANA SHELTON Order Number: [id number] Reading MD: Parth Soto Measurements Intervals [place] Rate: 139 P: 52 IN: 102 QRS: 70 QRSD: 110 T: 32 QT: 311 QTc: 473 Interpretive Statements Sinus tachycardia RSR' in V1 or V2, probably normal variant Borderline T wave abnormalities Baseline wander in lead(s) V2,V5 Electronically Signed On 02-12-2024 16:47:08 PST by Parth Soto Please click the below link to view image of tracing.
[2024-02-12] MEDS: ACETAMINOPHEN 325 MG TAB PO PRN (14:36)
[2024-02-12] MEDS: SODIUM CHLORIDE 0.9% 500 ML IV ONE ×2 (15:00→15:11)
[2024-02-12] MEDS ORDERED: SODIUM CHLORIDE 0.9% 1,000 ML IV SCH (16:45)
[2024-02-12] MEDS: SODIUM CHLORIDE 0.9% 1,000 ML IV SCH ×2 (17:00→18:15)
[2024-02-12] MEDS ORDERED: InsuLIN REG 1unit/0.01ml Soln (100units/ml) SC SCH (17:00)
[2024-02-12] MEDS: INSULIN LISPRO (HUMAN) 100 UNITS/ML ML SC SCH (17:25)
[2024-02-12] MEDS: ACCU-CHEK COMFORT CURVE STRIP VI SCH ×2 (17:26→21:37)
[2024-02-12] MEDS: ACETAMINOPHEN 325 MG TAB PO SCH (17:49)
[2024-02-12] MEDS: INSULIN LANTUS (GLARGINE) 1 /0.01ml (100units/ml) SC SCH (17:52)
[2024-02-12] MEDS: InsuLIN REG 1unit/0.01ml Soln (100units/ml) SC SCH ×2 (17:59→23:18)
[2024-02-12] MEDS: VANCOMYCIN 1GM/250ML KIT 250 ML IV SCH (21:36)
[2024-02-13] VITALS (11 sets, daily range): BP systolic 99–171; BP diastolic 59–91; PULSE 57–100; RESP 10–21; TEMP 97.4–98.7; O2SAT 11–100
[2024-02-13] MEDS: SODIUM CHLORIDE 0.9% 1,000 ML IV SCH (00:43)
[2024-02-13] MEDS: guaiFENesin-DM 100/10mg/5ml SYR PO PRN (05:40)
[2024-02-13] MEDS ORDERED: InsuLIN REG 1unit/0.01ml Soln (100units/ml) SC SCH (07:00)
[2024-02-13 10:44] LABS: Chloride 102 mmol/L (98-107); Potassium 4.1 mmol/L (3.5-5.1)
[2024-02-13 10:45] LABS: Anion Gap 4 (5-15); Carbon Dioxide 29 mmol/L (20-31)
[2024-02-13 10:48] LABS: Basophils # (auto) 0 10 ^3/uL (0-0.2); Basophils % (auto) 0.2 % (0.0-2.0); Eosinophils # (auto) 0 10 ^3/uL (0-0.8); Eosinophils % (auto) 0.1 % (0.0-7.0); Hematocrit 27.4 % (36.0-46.0); Hemoglobin 8.1 g/dL (12.2-16.2); Lymphocytes % (auto) 7.3 % (10.0-50.0); Mean Corpuscular Hemoglobin 20.7 pg (28.0-32.0); Mean Corpuscular Hgb Conc. 29.6 g/dL (32.0-36.0); Mean Corpuscular Volume 69.9 fL (80.0-100.0); Monocytes # (auto) 0.6 10 ^3/uL (0-1.3); Monocytes % (auto) 4.6 % (0.0-12.0); Neutrophils # (auto) 12.1 10 ^3/uL (1.6-8.6); Neutrophils % (auto) 87.8 % (37.0-80.0); Nucleated Red Blood Cells % 0.1 %; Platelet Count (auto) 157 10^3/uL (140-450); Red Blood Cells 3.92 10^6/uL (4.0-5.20); Red Cell Distribution Width 18.1 % (11.8-14.3); White Blood Cell 13.8 10^3/uL (4.4-10.8)
[2024-02-13 10:51] LABS: BUN/Creatinine Ratio 33.3 (10.0-20.0); Magnesium 2.1 mg/dL (1.6-2.6)
[2024-02-13 10:52] LABS: Blood Urea Nitrogen 24 mg/dL (9-23); Glucose 292 mg/dL (74-106); Sodium 135 mmol/L (136-145)
[2024-02-13] MEDS: VANCOMYCIN 1GM/250ML KIT 250 ML IV SCH (12:27)
--- NOTE | 2024-02-13 14:55 | DVHPNRES ---
Progress Note Date Seen: Feb 13, 2024 Resident Creating Document: VLADIMIR ALBERTO RESIDENT Medical Necessity Reason Pt with a Central, PICC or Fol: No Subjective Review of Systems Patient seen and examined at bedside. Patient is currently on room air. Mentions generalized body aches. Mentions excessive coughing. She took a shower without staff knowledge, wearing tele monitor and with IV medications infusing Objective vital signs Vital Sign Date Time Temp Pulse Resp B/P (MAP) Pulse Ox O2 Delivery O2 Flow Rate FiO2 02/13/24 13:00 97.8 82 20 102/60 (74) 99 97.8 02/13/24 07:26 Nasal Cannula 6.0 02/13/24 07:26 44 Total Intake and Output 02/12/24 02/12/24 02/13/24 15:00 23:00 07:00 Intake Total 350 ml 1650 ml 500 ml Balance 350 ml 1650 ml 500 ml medications Current Medications Medications Dose Ordered Sig/Blaze Route Start Time Stop Time Status Last Admin Dose Admin Ondansetron HCl 4 mg Q4HP PRN IV 02/11/24 19:30 Acetaminophen 650 mg Q6HP PRN PO 02/11/24 19:30 02/12/24 14:36 650 MG Piperacillin Sod/ Tazobactam Sod 100 ml @ 25 mls/hr Q8HR IV 02/12/24 06:00 02/13/24 14:16 25 MLS/HR Vancomycin HCl 0 ml @ 0 mls/hr UD IV 02/11/24 21:15 Albuterol 2.5 mg Q6HPRN PRN NEB 02/11/24 21:15 02/12/24 02:03 2.5 MG Guaifenesin/ Dextromethorphan 10 ml Q4HP PRN PO 02/11/24 23:45 02/13/24 14:17 10 ML Enoxaparin Sodium 40 mg DAILY SC 02/12/24 10:00 02/12/24 12:41 40 MG Ipratropium [place] 0.5 mg Q6HPRN PRN NEB 02/12/24 12:45 Acetaminophen 650 mg Q6HP PO 02/12/24 18:00 02/13/24 12:27 650 MG Ketorolac Tromethamine 15 mg BIDPRN PRN IV 02/12/24 12:45 02/17/24 12:44 02/12/24 13:08 15 MG Insulin Glargine 15 units QPM SC 02/12/24 18:00 02/12/24 17:52 15 UNITS Insulin Human Lispro 5 units AC SC 02/12/24 17:00 02/13/24 11:30 5 UNITS Diagnostic Test (Pha) 1 strip ACHS 02/12/24 22:00 02/13/24 11:30 1 STRIP Insulin Human Regular HS SC 02/12/24 22:00 02/12/24 23:18 8 UNITS Dextrose 50 ml UD PRN IV 02/12/24 17:30 Insulin Human Regular AC SC 02/12/24 17:47 02/13/24 11:30 8 UNITS Sodium Chloride 1,000 ml @ 150 mls/hr Q6H40M IV 02/13/24 00:05 02/13/24 00:43 150 MLS/HR Vancomycin HCl 250 ml @ 250 mls/hr Q8H IV 02/13/24 12:00 02/13/24 12:27 250 MLS/HR Examination General Appearance: Cooperative. Well developed. Well nourished. NAD Head Exam: Normal inspection Neck Exam: Normal inspection. Non-tender. Normal alignment Pulmonary/Respiratory: Chest non-tender. Clear bilateral breath sounds, no crackles, trace wheezing. Cardiovascular/Chest: Regular rate and rhythm. No murmurs. No JVD. Peripheral Pulses: 2+ Radial (R). 2+ Radial (L). 2+ Pedal (R). 2+ Pedal (L) Abdominal Exam: Normal bowel sounds. Soft. normal abdomen, no visible veins, Nontender. No hepatospenomegaly. No masses Ankle Exam: Negative ankle edema Lower extremities: Bilateral leg tenderness all over Neuro/Mental Status: A&O x4. Coherent. Thoughts/Psych: Normal thought pattern. Appropriate mood and affect. Good judgement and insight Skin Exam: Normal inspection. Normal color. Warm. Dry laboratory and microbiology Laboratory Tests 02/13/24 09:48 Test 02/13/24 09:48 Range/Units Serum Glucose 292 H 74-106 mg/dL Microbiology Date/Time Source Procedure Growth Status 02/12/24 12:05 Voided Urine Urine Culture - Preliminary Resulted 02/11/24 16:03 Blood Blood Culture - Preliminary NO GROWTH AFTER 24 HOURS OF INCUBATION. Resulted Labs and/or images reviewed: Labs reviewed by me, Image(s) reviewed by me Problem List/Assessment/Plan Problem List/Assessment/Plan Acute respiratory failure #Pneumonia, Gram-positive versus Gram-negative #Sepsis possibly due to above #Lactic acidosis #NSTEMI type 2 due to above - CXR: Left basilar atelectasis versus developing infection - CT angiography chest: Poor opacification pulmonary artery to exclude pulmonary emboli, no saddle embolus visualized. Consolidation retrocardiac area left lower lobe consistent with infiltrate or atelectasis. Small left pleural effusion - lower extremity venous study: No sonographic evidence of DVT in either lower extremity at this time. - IV Zosyn, - ipratropium albuterol med nebs Methamphetamine abuse Rhabdomyolysis due to above XUAN hemodynamically mediated/VMN - IV NS approximately 3 L infused; maintenance IV NS at 250 cc/hour , was stopped yesterday when was started on 150 cc/hour, discontinued today - we will continue to monitor -repeat CK tomorrow Anemia of chronic disease - monitor Hypertensive urgency - monitor hypotensive likely due to shock -IV fluids Type 2 diabetes, uncontrolled, Hb A1c 8.4 - insulin Lantus 15 units q.p.m., insulin lispro 5 units t.i.d. - mild sliding scale insulin DVT prophylaxis: Lovenox 40mg Goals of care: Full code, discussed for >16 minutes on 02/11/24 Plan discussed with patient Plan discussed with Dr. Jay Discharge planning within 24-48 hours Plan discussed with: Patient, Other Date of Service: Feb 13, 2024 Billing Provider: REESE JAY MD Common Visit Codes: [id number] INP/OBS CARE(HIGH) VLADIMIR ALBERTO RESIDENT Feb 13, 2024 14:55 REESE JAY MD Feb 13, 2024 22:04
[2024-02-14 01:00] VITALS: BP 117/60; PULSE 80; RESP 16; TEMP 98.1; O2SAT 95
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
== END 2024-02-14 03:50 | disposition left against medical advice (07) | DRG 720 ==
LOC: EDBD 15:37 → ER 15:37 → TELE 19:29 → TELE-WESTW 23:50
PROVIDERS: ADMIT Student in an Organized Health Care Education/Training Program; ATTEND Student in an Organized Health Care Education/Training Program
DX: A41.59 Other Gram-negative sepsis (principal); J96.01 Acute respiratory failure with hypoxia; N17.0 Acute kidney failure with tubular necrosis; R57.8 Other shock; J15.69 Pneumonia due to other Gram-negative bacteria; E87.20 Acidosis, unspecified; D63.8 Anemia in other chronic diseases classified elsewhere; I21.A1 Myocardial infarction type 2; Z53.29 Procedure and treatment not carried out because of patient's decision for other reasons; Z20.822 Contact with and (suspected) exposure to COVID-19; E11.9 Type 2 diabetes mellitus without complications; E66.01 Morbid (severe) obesity due to excess calories; F15.10 Other stimulant abuse, uncomplicated; I16.0 Hypertensive urgency; M62.82 Rhabdomyolysis; J15.9 Unspecified bacterial pneumonia; Z83.3 Family history of diabetes mellitus; Z82.49 Family history of ischemic heart disease and other diseases of the circulatory system; Z68.42 Body mass index [BMI] 45.0-49.9, adult; Z79.899 Other long term (current) drug therapy
CPT/HCPCS: 36415; 36600; 71045; 71275; 80048; 80053; 80202; 80307; 80320; 81001; 82550; 82805; 82962; 83036; 83605; 83735; 83880; 84484; 85007; 85025; 85027; 85379; 85610; 87040; 87081; 87086; 87426; 87804; 93005; 93970; 94640; 99291; G0378; J1815; J1885; J2405; J2543

== ENCOUNTER 2024-02-14 09:09 | Inpatient (IN) | payer MEDICAID ==
[~2024-02-14] VITALS: Ht 170.2 cm; Wt 129.4 kg
--- NOTE | 2024-02-14 09:57 | ED.PDOC ---
History of Present Illness HPI Comments 43 y/o F present with c/o generalized weakness, bodyaches, and fever, today. Patient comment on returning to ED after leaving AMA, this morning, form [facility] for PNA/Sepsis admission, due to her , recently, passing. Patient endorses on having symptoms for the past 2x weeks and seen at ED and admitted, initially, on 02/11/24. Since leaving this morning, she states on feeling better then but still reports on having symptoms. Chief Complaint: General Weakness Time Seen by MD: 09:31 Primary Care Provider: GALIK Reviewed Notes: Nurses Notes, Medications, Allergies Allergies: Coded Allergies: NO KNOWN ALLERGIES (Unverified , 10/11/11) Home Meds Active Scripts Ferrous Sulfate (Iron) 325 Mg Tab, 325 MG PO TID for 30 Days, #90 TAB Prov:VALORIE GALAVIZ PAC 04/10/23 Ibuprofen (Ibuprofen) 600 Mg Tab, 1 TAB PO TID, #30 TAB Prov:VALORIE GALAVIZ PAC 04/10/23 Naproxen (NAPROSYN TABLET) 500 Mg Tb, 1 TAB PO BID for 7 Days, #14 TAB 1 Refill Prov:CHASIDY TO DO 04/05/22 Ciprofloxacin Hcl (Cipro) 500 Mg Tab, 1 TAB PO BID, #14 TAB Prov:ROSANA SHELTON MD 04/04/22 Information Source: Patient Mode of Arrival: Ambulatory Severity: Moderate Timing: Hours Duration: Since onset Prehospital treatment: None Past Medical History PAST MEDICAL HISTORY: Anxiety, Depression, DM, HTN Surgical History: BTL, Tonsillectomy, Tubal Ligation ORAL AND MAXILLOFACIAL SURGERY History: No Pertinent ORAL AND MAXILLOFACIAL SURGERY History Family History Family History: Reviewed,noncontributory to illness, Family hx of DM, Family hx of HTN Social History Smoker: Secondhand Alcohol: Denies ETOH Use Drugs: Denies Drug Use Lives In: Home Physical Exam General Appearance: Moderate Distress, Normal HEENT: PERRL/EOMI, Other (Nasal mucosa edema with greater than 80% occlusion bilaterally with scant postnasal drip.) Neck: Full Range of Motion, Non-Tender, Normal, Normal Inspection Respiratory: Chest Non-Tender, Lungs Clear, No Accessory Muscle Use, No Respiratory Distress, Normal Breath Sounds Cardiovascular: No Edema, No JVD, No Murmur, No Gallop, Normal Peripheral Pulses, Regular Rate/Rhythm Breast Exam: Normal Gastrointestinal: No Organomegaly, Non Tender, Normal Bowel Sounds, Soft Genitalia: Deferred Pelvic: Deferred Rectal: Deferred Extremities: No calf tenderness, Normal capillary refill, Normal inspection, Normal range of motion, Non-tender, No pedal edema Neurologic: Alert, underwriting service representative II-XII nml as Tested, No Motor Deficits, Normal Affect, Normal Mood, No Sensory Deficits Cerebellar Function: NOT DONE Reflexes: NOT DONE Skin: Normal Color, Warm Lymphatic: No Adenopathy Was a procedure done? Was a procedure done?: No Differential Dx Considerations may include: NSTEMI, STEMI, bronchitis, bronchiolitis, COVID-19, influenza, bacterial pneumonia, PE X-Ray, Labs, Meds, VS Vital Signs Date Time Temp Pulse Resp B/P (MAP) Pulse Ox O2 Delivery O2 Flow Rate FiO2 02/14/24 14:29 100 17 95 Room Air 02/14/24 14:29 97.8 100 17 127/83 (98) 95 97.8 02/14/24 09:50 98.5 114 20 115/62 (79) 95 98.5 02/14/24 09:50 114 20 95 Room Air 02/14/24 09:29 98.3 112 17 118/76 (90) 94 Lab Test 02/14/24 14:08 02/14/24 12:10 02/14/24 11:00 Range/Units Troponin I High Sensitivity 314 *H 300 *H 308 *H </=34 ng/L White Blood Count 10.0 # 4.4-10.8 10^3/uL Red Blood Count 4.11 4.0-5.20 10^6/uL Hemoglobin 8.6 L 12.2-16.2 g/dL Hematocrit 28.5 L 36.0-46.0 % Mean Corpuscular Volume 69.4 L 80.0-100.0 fL Mean Corpuscular Hemoglobin 21.0 L 28.0-32.0 pg Mean Corpuscular Hemoglobin Concent 30.3 L 32.0-36.0 g/dL Red Cell Distribution Width 18.1 H 11.8-14.3 % Platelet Count 240 140-450 10^3/uL Mean Platelet Volume 9.4 6.9-10.8 fL Neutrophils (%) (Auto) 37.0-80.0 % Lymphocytes (%) (Auto) 10.0-50.0 % Monocytes (%) (Auto) 0.0-12.0 % Basophils (%) (Auto) 0.0-2.0 % Neutrophils # (Auto) 1.6-8.6 10 ^3/uL Lymphocytes # (Auto) 0.4-5.4 10 ^3/uL Monocytes # (Auto) 0-1.3 10 ^3/uL Differential Total Cells Counted 100.0 100 Neutrophils % (Manual) 72 37.0-80.0 Band Neutrophils % (Manual) 0 Lymphocytes % (Manual) 20 10.0-50.0 Monocytes % (Manual) 8 0-12 Eosinophils % (Manual) 0 0-7 Basophils % (Manual) 0 0.0-2.0 Metamyelocytes % (manual) 0 Myelocytes % (Manual) 0 Promyelocytes % (Manual) 0 Blast Cells % (Manual) 0 Reactive Lymphocytes 0 Platelet Estimate Adequate Hypochromasia (manual) Slight Anisocytosis (manual) Slight Microcytosis Slight Stomatocytes Few Urine Color Pending Urine Clarity Pending Urine pH Pending Urine Specific [place] Pending Urine Protein Pending Urine Ketones Pending Urine Blood Pending Urine Nitrite Pending Urine Bilirubin Pending Urine Urobilinogen Pending Urine Leukocyte Esterase Pending Urine RBC Pending Urine WBC Pending Urine Squamous Epithelial Cells Pending Urine Bacteria Pending Urine Glucose Pending D-Dimer, Quantitative 1.43 H 0.0-0.49 mg/L FEU Sodium Level 135 L 136-145 mmol/L Potassium Level 5.0 3.5-5.1 mmol/L Chloride Level 104 98-107 mmol/L Carbon Dioxide Level 21 20-31 mmol/L Anion Gap 10 5-15 Blood Urea Nitrogen 10 # 9-23 mg/dL Creatinine 0.69 0.550-1.02 mg/dL Glomerular Filtration Rate Calc 112 >90 mL/min BUN/Creatinine Ratio 14.5 10.0-20.0 Serum Glucose 221 H 74-106 mg/dL Calcium Level 9.3 8.7-10.4 mg/dL Total Bilirubin 0.4 0.2-1.0 mg/dL Aspartate Amino Transferase (AST) 71 H 13-40 U/L Alanine Aminotransferase (ALT) 36 7-40 U/L Alkaline Phosphatase 78 46-116 U/L Total Protein 7.2 5.7-8.2 g/dL Albumin 3.4 3.2-4.8 g/dL Current Medications Medications (Trade) Dose Ordered Sig/Blaze Route Start Time Stop Time Status Last Admin Aspirin 162 mg ONCE ONCE PO 02/14/24 13:45 02/14/24 13:46 DC 02/14/24 14:27 X-Ray, Labs, Meds, VS Comment This 43-year-old female states she left against medical advice early this morning after being admitted for chest pain and shortness of breath. She felt worrisome presented back to the emergency room. Here, she was noted to continue to look unwell. Her troponin was elevated x2 with multiple osteolytic changes to her EKG. Secondary to her general malaise, shortness of breath and elevated troponin, if the patient for further workup management of her NSTEMI. Time of 1ST Reevaluation: 15:04 Reevaluation 1ST: Unchanged Patient Education/Counseling: Diagnosis, Treatment Family Education/Counseling: No Family Present Departure 1 Departure Time of Disposition: 15:04 Impression: Primary Impression: NSTEMI, initial episode of care Additional Impression: Cough Disposition: 09 ADMITTED INPATIENT Admit to: Tele Condition: Fair Critical Care Note Critical Care Time?: No Stability Stability form required: No Heart Score Heart Score: Heart Score Response (Comments) Value History Moderate Suspicious 1 EKG Repolarization Disturb 1 Age <45 0 Risk Factors 1 or 2 risk factors 1 Troponin >3 x's Normal limit 2 Total 5 I personally scribed for AYAAN TOLLIVER MD ([email or web address]) on 02/14/24 at 10:47. Electronically submitted by Piotr Gonzalez [email or web address]). AYAAN TOLLIVER MD Feb 14, 2024 09:57
[2024-02-14 11:33] LABS: Albumin 3.4 g/dL (3.2-4.8); Alkaline Phosphatase 78 U/L (46-116); Anion Gap 10 (5-15); Calcium 9.3 mg/dL (8.7-10.4); Carbon Dioxide 21 mmol/L (20-31); Chloride 104 mmol/L (98-107)
[2024-02-14 11:34] LABS: BUN/Creatinine Ratio 14.5 (10.0-20.0); Bilirubin, Total 0.4 mg/dL (0.2-1.0); Total Protein 7.2 g/dL (5.7-8.2)
[2024-02-14 11:35] LABS: Alanine Aminotransferase 36 U/L (7-40); Aspartate Aminotransferase 71 U/L (13-40); Blood Urea Nitrogen 10 mg/dL (9-23); Glucose 221 mg/dL (74-106); Sodium 135 mmol/L (136-145)
--- NOTE | 2024-02-14 12:17 | DVH ---
XY CHEST PORTABLE, HISTORY: cough COMPARISON: XY CHEST PORTABLE on DOS: 02/11/24 XY CHEST PORTABLE on DOS: 02/11/24 TECHNICAL DATA: 1 view of the chest was obtained. FINDINGS: Lines and tubes: None Cardiomediastinal silhouette: normal Pulmonary vasculature: normal Lung expansion: normal Lung airspace: normal Lung interstitium: normal Pleura: normal Pneumothorax: no Bones: Unremarkable Other: no IMPRESSION: No acute intrathoracic abnormality.
[2024-02-14 12:44] LABS: Hemoglobin 8.6 g/dL (12.2-16.2); Platelet Count (auto) 240 10^3/uL (140-450)
[2024-02-14 12:45] LABS: Hematocrit 28.5 % (36.0-46.0); Mean Corpuscular Hgb Conc. 30.3 g/dL (32.0-36.0); Mean Corpuscular Volume 69.4 fL (80.0-100.0); Red Blood Cells 4.11 10^6/uL (4.0-5.20); Red Cell Distribution Width 18.1 % (11.8-14.3)
[2024-02-14 13:02] LABS: Band Neutrophils % (manual) 0; Basophils % (manual) 0 (0.0-2.0); Blast Cells 0; Eosinophils % (manual) 0 (0-7); Metamyelocytes % 0; Myelocytes % 0; Promyelocytes % 0; Reactive Lymphocytes 0
[2024-02-14 13:17] LABS: Lymphocytes % (manual) 20 (10.0-50.0); Monocytes % (manual) 8 (0-12)
[2024-02-14 13:18] LABS: Anisocytosis Slight; Hypochromia Slight; Platelet Estimate Adequate; Stomatocytes Few
[2024-02-14] MEDS: ASPirin 81 mg TAB PO ONE (14:27)
[2024-02-14 15:43] VITALS: PULSE 105; RESP 18; O2SAT 96
--- NOTE | 2024-02-14 16:16 | ECG ---
[facility] Test Date: 2024-02-14 Test Time: 14:50:56 Pat Name: SOLITARIO HINES Department: ER Room: 0281T Gender: F Congressional Representative: YASMINE : 1980 Requested By: AYAAN TOLLIVER Order Number: [id number] Reading MD: Parth Soto Measurements Intervals [place] Rate: 99 P: 54 MO: 167 QRS: 58 QRSD: 120 T: -12 QT: 351 QTc: 451 Interpretive Statements Sinus rhythm Probable left atrial enlargement IVCD, consider atypical RBBB Baseline wander in lead(s) II,III,aVL,aVF Electronically Signed On 02-16-2024 13:07:23 PST by Parth Soto Please click the below link to view image of tracing.
[2024-02-14] MEDS ORDERED: ACETAMINOPHEN 325 MG TAB PO PRN (18:15)
[2024-02-14] MEDS ORDERED: NITROGLYCERIN 0.4 MG SL TAB SL PRN (18:15)
[2024-02-14] MEDS ORDERED: MORPHINE SULFATE INJ 2 MG/ml SYRG IV PRN (18:15)
[2024-02-14] MEDS ORDERED: DEXTROSE (50%) 50ML SYRG IV PRN (18:30)
[2024-02-14] MEDS ORDERED: IPRATROPIUM BROM 0.5 MG/2.5ML INH SOL NEB PRN (18:30)
[2024-02-14] MEDS ORDERED: ALBUTEROL SULF 2.5 MG/0.5ML(0.5%) NEB SOLN NEB PRN (18:30)
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
[2024-02-14] MEDS: PIPERACILLIN-TAZOB 3.375GM 100 ML IV ONE (18:36)
[2024-02-14 18:55] VITALS: O2SAT 97
[2024-02-14 18:56] VITALS: O2SAT 97
[2024-02-14 21:46] VITALS: BP 118/71; PULSE 98; RESP 18; TEMP 98.1; O2SAT 98
[2024-02-14] MEDS: INSULIN LANTUS (GLARGINE) 1 /0.01ml (100units/ml) SC SCH (23:07)
[2024-02-14] MEDS: InsuLIN REG 1unit/0.01ml Soln (100units/ml) SC SCH (23:07)
[2024-02-14] MEDS: ACCU-CHEK COMFORT CURVE STRIP VI SCH (23:10)
[2024-02-15] MEDS: PIPERACILLIN-TAZOB 3.375GM 100 ML IV SCH (01:18)
[2024-02-15 05:45] LABS: Mean Corpuscular Hemoglobin 20.7 pg (28.0-32.0); Mean Corpuscular Hgb Conc. 29.7 g/dL (32.0-36.0); Mean Corpuscular Volume 69.7 fL (80.0-100.0); Platelet Count (auto) 189 10^3/uL (140-450); Red Blood Cells 3.88 10^6/uL (4.0-5.20); Red Cell Distribution Width 18.4 % (11.8-14.3); White Blood Cell 7.8 10^3/uL (4.4-10.8)
[2024-02-15 06:03] LABS: Alanine Aminotransferase 27 U/L (7-40); Albumin 3.3 g/dL (3.2-4.8); Alkaline Phosphatase 55 U/L (46-116); Anion Gap 6 (5-15); Aspartate Aminotransferase 22 U/L (13-40); BUN/Creatinine Ratio 23.2 (10.0-20.0); Bilirubin, Total 0.7 mg/dL (0.2-1.0); Blood Urea Nitrogen 13 mg/dL (9-23); Calcium 8.7 mg/dL (8.7-10.4); Carbon Dioxide 30 mmol/L (20-31); Chloride 105 mmol/L (98-107); Glucose 141 mg/dL (74-106); Potassium 3.9 mmol/L (3.5-5.1); Sodium 141 mmol/L (136-145); Total Protein 6.3 g/dL (5.7-8.2)
[2024-02-15 06:25] VITALS: O2SAT 96
[2024-02-15 06:34] LABS: Band Neutrophils % (manual) 0; Basophils % (manual) 0 (0.0-2.0); Blast Cells 0; Metamyelocytes % 0; Myelocytes % 0; Promyelocytes % 0; Reactive Lymphocytes 0
[2024-02-15] MEDS: INSULIN LISPRO (HUMAN) 100 UNITS/ML ML SC SCH (06:57)
[2024-02-15] MEDS ORDERED: VANCOMYCIN PER PHARMACY 0 MG IV SCH (09:45)
[2024-02-15 10:00] VITALS: O2SAT 95
[2024-02-15] MEDS: VANCOMYCIN 1GM/250ML KIT 250 ML IV SCH (10:24)
[2024-02-15 11:57] LABS: Eosinophils % (manual) 1 (0-7); Hypochromia Marked; Lymphocytes % (manual) 12 (10.0-50.0); Monocytes % (manual) 8 (0-12); Platelet Estimate Adequate
[2024-02-15] MEDS: AZITHROMYCIN 500MG/ 250ML 250 ML IV SCH (14:25)
[2024-02-15 15:49] LABS: COVID19 ANTIGEN SOFIA FIA NEGATIVE (NEGATIVE); Rapid Influenza A Negative (Negative); Rapid Influenza B Negative (Negative)
[2024-02-15] MEDS ORDERED: VANCOMYCIN 1.25GM/250ML 250 ML IV SCH (18:00)
[2024-02-15 18:24] VITALS: BP 116/68; PULSE 84; RESP 18; TEMP 98.6; O2SAT 95
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
[2024-02-15] MEDS ORDERED: DOCUSATE SOD 100 MG CAP PO PRN (19:45)
[2024-02-15 19:46] VITALS: O2SAT 98
[2024-02-15 20:00] VITALS: PULSE 84; PULSE 91; RESP 18; O2SAT 95
[2024-02-15] MEDS: VANCOMYCIN 1.25gm/250mL PREMIX or KIT IV SCH (20:57)
[2024-02-16] VITALS (13 sets, daily range): BP systolic 99–138; BP diastolic 47–77; PULSE 60–93; RESP 17–22; TEMP 97.8–98.7; O2SAT 91–99
[2024-02-16 06:08] LABS: Mean Corpuscular Hgb Conc. 30.4 g/dL (32.0-36.0)
[2024-02-16 06:10] LABS: Anion Gap 5 (5-15); Calcium 9.4 mg/dL (8.7-10.4); Carbon Dioxide 30 mmol/L (20-31); Chloride 102 mmol/L (98-107); Hematocrit 27.4 % (36.0-46.0); Hemoglobin 8.3 g/dL (12.2-16.2); Mean Corpuscular Hemoglobin 21.2 pg (28.0-32.0); Mean Corpuscular Volume 69.8 fL (80.0-100.0); Platelet Count (auto) 229 10^3/uL (140-450); Potassium 4.3 mmol/L (3.5-5.1); Red Blood Cells 3.93 10^6/uL (4.0-5.20); Red Cell Distribution Width 18.4 % (11.8-14.3); Sodium 137 mmol/L (136-145); White Blood Cell 9.4 10^3/uL (4.4-10.8)
[2024-02-16 06:16] LABS: BUN/Creatinine Ratio 12.3 (10.0-20.0)
[2024-02-16 06:18] LABS: Blood Urea Nitrogen 8 mg/dL (9-23); Glucose 167 mg/dL (74-106)
[2024-02-16 06:25] LABS: Basophils % (manual) 0 (0.0-2.0); Blast Cells 0; Metamyelocytes % 0; Promyelocytes % 0; Reactive Lymphocytes 0
[2024-02-16 08:21] LABS: Band Neutrophils % (manual) 2; Eosinophils % (manual) 5 (0-7); Lymphocytes % (manual) 9 (10.0-50.0); Monocytes % (manual) 7 (0-12); Myelocytes % 1
[2024-02-16 08:22] LABS: Hypochromia Moderate; Platelet Estimate Adequate
[2024-02-16] MEDS: ENOXAPARIN SOD 40 MG/0.4 ML SYRINGE SC SCH (10:24)
[2024-02-16] MEDS: MORPHINE SULFATE INJ 2 MG/ml SYRG IV PRN (11:47)
--- NOTE | 2024-02-16 13:20 | DVHSR ---
APPROVED REPORT EXAM: LIMITED Two-dimensional and M-mode echocardiogram with color Doppler. Blood Pressure: 138/73 mmHg INDICATION Elevated troponin RISK FACTORS Obesity: Height: 5'7", Weight: 289 DIMENSIONS LVDd4.8 (3.8-5.7cm)LA (2D) (1.9-4.0cm)Aortic Root (2.0-3.7cm) LVDs3.2 (2.5-4.0cm)LA (MM) (1.9-4.0cm)Aortic Cusp Exc (1.5-2.0cm) EF (%) 62.0 (55-70%)Rt. Atrium (1.9-4.0cm)Asc. Aorta cm IVSd1.2 (0.7-1.1cm)RV (D) (1.8-2.4cm) PWd1.2 (0.7-1.1cm) Mitral Valve MitralMitral Stenosis E/A ratio0.02D MVAcm2 Aortic Valve Aortic ValveAortic Stenosis LVOT Diameter2.0 (1.8-2.4cm)Doppler AVAcm2 Other Information Quality : Technically LimitedRhythm : Technically limited study due to body habitus, patient restless, patient ended test early due to anx iety. Conclusion Very limited study due to patient body habitus. Overall preserved left ventricular size and dimension. Normal left ventricular systolic function est imated ejection fraction 60%. Normal right ventricular size and dimension. Grossly normal biatrial size and dimension. Grossly normal valve without significant valve pathology. No significant pericardial effusion was noted.
[2024-02-16] MEDS: ALBUTEROL SULF 2.5 MG/0.5ML(0.5%) NEB SOLN NEB SCH (13:30)
[2024-02-16] MEDS: IPRATROPIUM BROM 0.5 MG/2.5ML INH SOL NEB SCH (13:30)
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
[2024-02-17] VITALS (20 sets, daily range): BP systolic 95–130; BP diastolic 43–75; PULSE 70–95; RESP 16–22; TEMP 97.4–99; O2SAT 93–100
[2024-02-17 05:57] LABS: Mean Corpuscular Hgb Conc. 30.5 g/dL (32.0-36.0)
[2024-02-17 06:01] LABS: Hematocrit 28.1 % (36.0-46.0); Hemoglobin 8.6 g/dL (12.2-16.2); Mean Corpuscular Hemoglobin 21.4 pg (28.0-32.0); Mean Corpuscular Volume 70.3 fL (80.0-100.0); Platelet Count (auto) 269 10^3/uL (140-450); Red Blood Cells 3.99 10^6/uL (4.0-5.20); White Blood Cell 6.7 10^3/uL (4.4-10.8)
[2024-02-17 06:11] LABS: Chloride 102 mmol/L (98-107); Potassium 4.3 mmol/L (3.5-5.1); Sodium 139 mmol/L (136-145)
[2024-02-17 06:12] LABS: Anion Gap 7 (5-15); Calcium 9.6 mg/dL (8.7-10.4); Carbon Dioxide 30 mmol/L (20-31)
[2024-02-17 06:17] LABS: BUN/Creatinine Ratio 15.2 (10.0-20.0); Blood Urea Nitrogen 10 mg/dL (9-23)
[2024-02-17 06:30] LABS: Basophils % (manual) 0 (0.0-2.0); Blast Cells 0; Eosinophils % (manual) 0 (0-7); Metamyelocytes % 0; Myelocytes % 0; Promyelocytes % 0; Reactive Lymphocytes 0
[2024-02-17 07:01] LABS: Glucose 134 mg/dL (74-106)
[2024-02-17 08:43] LABS: Band Neutrophils % (manual) 7; Lymphocytes % (manual) 19 (10.0-50.0); Monocytes % (manual) 10 (0-12)
[2024-02-17 08:44] LABS: Hypochromia Moderate; Platelet Estimate Adequate; Stomatocytes Few
[2024-02-17] MEDS: IPRATROPIUM BROM 0.5 MG/2.5ML INH SOL NEB SCH (11:39)
[2024-02-17] MEDS: ALBUTEROL SULF 2.5 MG/0.5ML(0.5%) NEB SOLN NEB SCH (11:39)
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
[2024-02-17 15:39] LABS: % Iron Saturation 9.8 % (15-50)
[2024-02-17] MEDS: HYDROcodone-ACET 5/325MG TAB PO PRN (20:47)
[2024-02-18] VITALS (14 sets, daily range): BP systolic 104–134; BP diastolic 56–79; PULSE 74–93; RESP 17–20; TEMP 98.1–98.2; O2SAT 77–100
[2024-02-18 06:08] LABS: Hemoglobin 8.2 g/dL (12.2-16.2)
[2024-02-18 06:13] LABS: Hematocrit 27.2 % (36.0-46.0); Mean Corpuscular Hemoglobin 21.2 pg (28.0-32.0); Mean Corpuscular Hgb Conc. 30.2 g/dL (32.0-36.0); Mean Corpuscular Volume 70.1 fL (80.0-100.0); Platelet Count (auto) 264 10^3/uL (140-450); Red Blood Cells 3.89 10^6/uL (4.0-5.20); Red Cell Distribution Width 18.4 % (11.8-14.3); White Blood Cell 6.2 10^3/uL (4.4-10.8)
[2024-02-18 06:52] LABS: Band Neutrophils % (manual) 0; Basophils % (manual) 0 (0.0-2.0); Blast Cells 0; Metamyelocytes % 0; Myelocytes % 0; Promyelocytes % 0
[2024-02-18 07:49] LABS: Eosinophils % (manual) 3 (0-7); Hypochromia Moderate; Lymphocytes % (manual) 29 (10.0-50.0); Monocytes % (manual) 8 (0-12); Platelet Estimate Adequate; Reactive Lymphocytes 2; Stomatocytes Few
[2024-02-18] MEDS: AZITHROMYCIN 250 MG TAB PO SCH (10:45)
[2024-02-18] MEDS ORDERED: METF-489 PO (14:26)
[2024-02-18] MEDS ORDERED: EMPA1TAB PO (14:26)
[2024-02-18] MEDS ORDERED: LEVO500T91 PO (14:26)
[2024-02-18] MEDS ORDERED: DOXY1CAP57 PO (15:35)
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
== END 2024-02-18 18:07 | disposition home or self-care (01) | DRG 720 ==
LOC: ER 09:09 → TELE 18:11 → TELE-WESTW 02-15 18:03
PROVIDERS: ADMIT Student in an Organized Health Care Education/Training Program; ATTEND General Practice
DX: A41.50 Gram-negative sepsis, unspecified (principal); J96.01 Acute respiratory failure with hypoxia; I21.A1 Myocardial infarction type 2; J15.69 Pneumonia due to other Gram-negative bacteria; E87.20 Acidosis, unspecified; D63.8 Anemia in other chronic diseases classified elsewhere; E87.1 Hypo-osmolality and hyponatremia; Z20.822 Contact with and (suspected) exposure to COVID-19; F15.10 Other stimulant abuse, uncomplicated; F17.200 Nicotine dependence, unspecified, uncomplicated; J15.9 Unspecified bacterial pneumonia; D50.9 Iron deficiency anemia, unspecified; E11.9 Type 2 diabetes mellitus without complications; I10 Essential (primary) hypertension; I16.0 Hypertensive urgency; E55.9 Vitamin D deficiency, unspecified; E53.8 Deficiency of other specified B group vitamins; F32.A Depression, unspecified; F41.9 Anxiety disorder, unspecified; Z53.29 Procedure and treatment not carried out because of patient's decision for other reasons; M62.82 Rhabdomyolysis; Z79.4 Long term (current) use of insulin; Z79.1 Long term (current) use of non-steroidal anti-inflammatories (NSAID); Z79.899 Other long term (current) drug therapy
CPT/HCPCS: 36415; 71045; 80048; 80053; 80202; 82306; 82607; 82728; 82962; 83540; 83550; 84484; 85007; 85027; 85379; 87070; 87077; 87081; 87186; 87205; 87426; 87804; 93005; 93306; 94640; G0378; J1815; J2543

== ENCOUNTER 2024-09-28 16:09 | Emergency (ER) | payer MEDICAID, OTHER ==
[~2024-09-28] VITALS: Ht 167.6 cm; Wt 101.0 kg
[~2024-09-28 16:09] MED LIST changes: -CIPR-173 PO; +DOXY1CAP57 PO; +EMPA1TAB PO; -IBUP-1454 PO; +METF-489 PO; -NAP500T PO
--- NOTE | 2024-09-28 16:16 | ED.PDOC ---
Musculoskeletal HPI Comments This is a 44 year-old female BIB EMS for lower extremity S/P fall at home minutes ago. Per EMS, patient fell backwards onto buttocks and called EMS. Patient reports pain from the groin region radiating to left buttock/leg. Patient has no further complaints at this time and otherwise denies further associated symptoms of chest pain, migraine, dizziness, head trauma, fatigue, or general weakness. Chief Complaint: Lower Extremity Time Seen by MD: 16:10 Primary Care Provider: GALIK Reviewed Notes: Carriage Operator Notes, Medications, Allergies Allergies: Coded Allergies: NO KNOWN ALLERGIES (Unverified , 10/11/11) Home Meds Active Scripts Hydrocodone-Acetaminophen (Hydrocodone Bitartrate/AC 5-325 mg) 1 Tab Tab, 1 TAB PO Q8HP PRN for 5 Days, #15 TAB Prov:ROSANA SHELTON MD 09/28/24 Doxycycline Monohydrate (Doxycycline Monohydrate) 100 Mg Cap, 1 CAP PO BID for 7 Days, #14 CAP Prov:KODY HUDSON MD 02/18/24 Empagliflozin (Jardiance) 10 Mg Tab, 10 MG PO DAILY for 30 Days, #30 TAB 1 Refill Prov:KODY HUDSON MD 02/18/24 Metformin Hydrochloride (METFORMIN HCL ER) 500 Mg Tab, 1 TAB PO BID, #60 TAB 1 Refill Prov:KODY HUDSON MD 02/18/24 Ferrous Sulfate (Iron) 325 Mg Tab, 325 MG PO TID for 30 Days, #90 TAB Prov:VALORIE GALAVIZ [facility] 04/10/23 Information Source: Patient, Emergency Med Personnel Mode of Arrival: EMS Location: Left Extremity Location: Other (groin/buttock/left leg ) Timing: Minutes Severity: Moderate Pain: Moderate Circumstances: Fall Associated signs and symptoms: Leg pain (left), Other (groin pain and buttock pain ) Past Medical History PAST MEDICAL HISTORY: Anxiety, Depression, DM, HTN Surgical History: BTL, Tonsillectomy, Tubal Ligation RECREATIONAL PROGRAMS DIRECTOR History: No Pertinent RECREATIONAL PROGRAMS DIRECTOR History Family History Family History: Reviewed,noncontributory to illness, Family hx of DM, Family hx of HTN Social History Smoker: Secondhand Alcohol: Denies ETOH Use Drugs: Denies Drug Use Lives In: Home Constitutional: denies: chills, diaphoresis, fatigue, fever, malaise, sweats, weakness, others EENTM: denies: blurred vision, double vision, ear bleeding, ear discharge, ear drainage, ear pain, ear ringing, eye pain, eye redness, hearing loss, mouth pain, mouth swelling, nasal discharge, nose bleeding, nose congestion, nose pain, photophobia, tearing, throat pain, throat swelling, voice changes, others Respiratory: denies: cough, hemoptysis, orthopnea, SOB at rest, shortness of breath, SOB with excertion, stridor, wheezing, others Cardiovascular: denies: chest pain, dizzy spells, diaphoresis, Dyspnea on exertion, edema, irregular heart beat, left arm pain, lightheadedness, palpitations, PND, syncope, others Gastrointestinal: denies: abdomen distended, abdominal pain, blood streaked bowels, constipated, diarrhea, dysphagia, difficulty swallowing, hematemesis, melena, nausea, poor appetite, poor fluid intake, rectal bleeding, rectal pain, vomiting, others Genitourinary: denies: abnormal vagina bleeding, burning, dyspareunia, dysuria, flank pain, frequency, hematuria, incontinence, pain, , vagina discharge, urgency, others Neurological: denies: dizziness, fainting, headache, left sided numbness, left sided weakness, numbness, paresthesia, pre-existing deficit, right sided numbness, right sided weakness, seizure, speech problems, tingling, tremors, weakness, others Musculoskeletal: reports: joint pain, muscle pain; denies: back pain, gout, joint swelling, muscle stiffness, neck pain, others Integumetry: denies: bruises, change in color, change in hair/nails, dryness, laceration, lesions, lumps, rash, wounds, others Allergic/Immunocompromised: denies: Difficulty Healing, Frequent Infections, Hives, Itching, others Hematologic/Lymphatic: denies: anemia, blood clots, easy bleeding, easy bruising, swollen glands, others Endocrine: denies: excessive hunger, excessive sweating, excessive thirst, excessive urination, flushing, intolerance to cold, intolerance to heat, unexplained weight gain, unexplained weight loss, others Psychiatric: denies: anxiety, bipolar disorder, depression, hopeless, panic disorder, schizophrenia, sleepless, suicidal, others All Other Systems: Reviewed and Negative Physical Exam General Appearance: Moderate Distress, Obese HEENT: Normal ENT Inspection, Pharynx Normal, TMs Normal Neck: Full Range of Motion, Non-Tender, Normal, Normal Inspection Respiratory: Chest Non-Tender, Lungs Clear, No Accessory Muscle Use, No Respiratory Distress, Normal Breath Sounds Cardiovascular: No Edema, No JVD, No Murmur, No Gallop, Normal Peripheral Pulses, Regular Rate/Rhythm Breast Exam: Deferred Gastrointestinal: No Organomegaly, Non Tender, No Pulsatile Mass, Normal Bowel Sounds, Soft Genitalia: Deferred Pelvic: Deferred Rectal: Deferred Extremities: No calf tenderness, Normal capillary refill, Normal inspection, Normal range of motion, Non-tender, No pedal edema Musculoskeletal : Apperance: Normal Neurologic: Alert, sorter/assay tech II-XII nml as Tested, No Motor Deficits, Normal Affect, Normal Mood, No Sensory Deficits Cerebellar Function: Normal Reflexes: Normal Skin: Dry, Normal Color, Warm Lymphatic: No Adenopathy Was a procedure done? Was a procedure done?: No Differential Diagnosis EXT Differential Diagnosis: Fracture, Sprain, Strain, Arthritis X-Ray, Labs, Meds, VS Vital Signs Date Time Temp Pulse Resp B/P (MAP) Pulse Ox O2 Delivery O2 Flow Rate FiO2 09/28/24 17:46 79 16 147/93 09/28/24 17:40 97.6 79 16 147/93 (111) 96 97.6 09/28/24 17:40 79 16 96 Room Air 09/28/24 16:11 98.5 91 16 121/72 98 98.5 Lab Test 09/28/24 17:04 Range/Units White Blood Count 5.0 4.4-10.8 10^3/uL Red Blood Count 5.08 4.0-5.20 10^6/uL Hemoglobin 11.0 L 12.2-16.2 g/dL Hematocrit 35.2 L 36.0-46.0 % Mean Corpuscular Volume 69.3 L 80.0-100.0 fL Mean Corpuscular Hemoglobin 21.6 L 28.0-32.0 pg Mean Corpuscular Hemoglobin Concent 31.2 L 32.0-36.0 g/dL Red Cell Distribution Width 17.4 H 11.8-14.3 % Platelet Count 188 140-450 10^3/uL Mean Platelet Volume 9.0 6.9-10.8 fL Neutrophils (%) (Auto) 62.8 37.0-80.0 % Lymphocytes (%) (Auto) 26.9 10.0-50.0 % Monocytes (%) (Auto) 7.8 0.0-12.0 % Eosinophils (%) (Auto) 1.4 0.0-7.0 % Basophils (%) (Auto) 1.1 0.0-2.0 % Neutrophils # (Auto) 3.2 1.6-8.6 10 ^3/uL Lymphocytes # (Auto) 1.4 0.4-5.4 10 ^3/uL Monocytes # (Auto) 0.4 0-1.3 10 ^3/uL Eosinophils # (Auto) 0.1 0-0.8 10 ^3/uL Basophils # (Auto) 0.1 0-0.2 10 ^3/uL Nucleated Red Blood Cells 0.1 % Sodium Level 137 136-145 mmol/L Potassium Level 4.2 3.5-5.1 mmol/L Chloride Level 102 98-107 mmol/L Carbon Dioxide Level 27 20-31 mmol/L Anion Gap 8 5-15 Blood Urea Nitrogen 11 9-23 mg/dL Creatinine 0.78 0.550-1.02 mg/dL Glomerular Filtration Rate Calc 97 >90 mL/min BUN/Creatinine Ratio 14.1 10.0-20.0 Serum Glucose 297 H 74-106 mg/dL Calcium Level 9.3 8.7-10.4 mg/dL Current Medications Medications (Trade) Dose Ordered Sig/Blaze Route Start Time Stop Time Status Last Admin Ondansetron HCl (Zofran) 4 mg ONCE ONCE IV 09/28/24 16:15 09/28/24 16:16 DC 09/28/24 17:45 Acetaminophen/ Hydrocodone Bitart (Energy 10/325MG Tab) 1 tab ONCE ONCE PO 09/28/24 16:45 09/28/24 16:46 DC 09/28/24 16:48 Morphine Sulfate 4 mg ONCE ONCE IV 09/28/24 17:45 09/28/24 17:46 DC 09/28/24 17:46 No fracture dislocation. Superior and inferior pubic ramus appear intact. At this time the patient had a CAT scan of the pelvis done which is negative for any fracture The patient was given Zofran 4 mg IV push The patient was given morphine 4 mg IV push The patient was also given Energy for the pain The patient is given a prescription of Energy The patient will return to the emergency department's the condition worsens The patient's CBC is within normal limits except for mild anemia with a hemoglobin of 11 The chemistry panel is within normal limits The patient is discharged at this time Images Reviewed?: Images reviewed and evaluated by me Time of 1ST Reevaluation: 16:41 Reevaluation 1ST: Unchanged Patient Education/Counseling: Diagnosis, Treatment Family Education/Counseling: No Family Present Departure 1 Departure Time of Disposition: 19:10 Impression: Primary Impression: Contusion of left hip Qualified Codes: S70.02XA - Contusion of left hip, initial encounter Additional Impression: History of fall Disposition: 01 HOME / SELF CARE / HOMELESS Condition: Stable e-Prescriptions Hydrocodone-Acetaminophen (Hydrocodone Bitartrate/AC 5-325 mg) 1 Tab Tab 1 TAB PO Q8HP PRN for 5 Days, #15 TAB Prov: ROSANA SHELTON MD 09/28/24 Discharged With: Self Critical Care Note Critical Care Time?: No Stability Stability form required: No Heart Score Heart Score: Heart Score Response (Comments) Value History N/A 0 EKG N/A 0 Age N/A 0 Risk Factors N/A 0 Troponin N/A 0 Total 0 I personally scribed for ROSANA SHELTON MD ([email or web address]) on 09/28/24 at 16:16. Electronically submitted by Dee Dee Talamantes ([employer]). I personally scribed for ROSANA SHELTON MD ([email or web address]) on 09/28/24 at 16:17. Electronically submitted by Dee Dee Talamantes ([employer]). I personally scribed for ROSANA SHELTON MD ([email or web address]) on 09/28/24 at 16:58. Electronically submitted by Dee Dee Talamantes ([employer]). ROSANA SHELTON MD Sep 28, 2024 16:16
[2024-09-28] MEDS: HYDROmorphone HCL 2 MG/ML VL/or syr IV ONE (16:45)
[2024-09-28] MEDS: HYDROcodone-ACET 10/325MG TAB PO ONE (16:48)
--- NOTE | 2024-09-28 16:53 | DVH ---
CLINICAL INDICATION: fall TECHNIQUE: 4 radiographic views of the left hip were obtained. Comparison: PELVIC on DOS: 04/04/22, PELUS on DOS: 04/04/22 FINDINGS/IMPRESSION: No fracture dislocation. Superior and inferior pubic ramus appear intact.
[2024-09-28 17:15] LABS: Hematocrit 35.2 % (36.0-46.0); Hemoglobin 11.0 g/dL (12.2-16.2); Mean Corpuscular Hemoglobin 21.6 pg (28.0-32.0); Mean Corpuscular Volume 69.3 fL (80.0-100.0); Nucleated Red Blood Cells % 0.1 %
[2024-09-28 17:26] LABS: Chloride 102 mmol/L (98-107); Potassium 4.2 mmol/L (3.5-5.1); Sodium 137 mmol/L (136-145)
[2024-09-28 17:27] LABS: Anion Gap 8 (5-15); Carbon Dioxide 27 mmol/L (20-31)
[2024-09-28 17:28] LABS: Calcium 9.3 mg/dL (8.7-10.4)
[2024-09-28 17:32] LABS: BUN/Creatinine Ratio 14.1 (10.0-20.0); Blood Urea Nitrogen 11 mg/dL (9-23)
[2024-09-28 17:40] VITALS: TEMP 97.6
[2024-09-28] MEDS: ONDANSETRON HCL 4 MG/2 ML VIAL IV ONE (17:45)
[2024-09-28] MEDS: MORPHINE SULFATE 4 MG/ML SYR/VIAL IV ONE (17:46)
[2024-09-28 18:20] LABS: Glucose 297 mg/dL (74-106)
--- NOTE | 2024-09-28 18:43 | DVH ---
Exam: CT PELVIS WO CONTRAST History: fall Comparison Study: PELVIC on DOS: 04/04/22, PELUS on DOS: 04/04/22 Technique: Multidetector CT of the pelvis was performed from iliac crests to pubic symphysis after th e administration of intravenous contrast was administered during this examination. Portal venous imag ing was obtained. Axial, coronal and sagittal multiplanar reformats were performed by the [facility] t on a separate workstation. Radiation Dose : CT Dose: CTDI volume is 38.64 mGy. Dose-length product is 1534.02 mGy*cm Findings: Visualized bowel: No bowel wall thickening or dilatation. Ascites: Absent Lymphadenopathy: No pelvic or mesenteric lymphadenopathy. Vasculature: The visualized abdominal aorta is normal in size and caliber. Abdominal and pelvic vesse ls demonstrate normal enhancement. Pelvic Organs: Unremarkable Musculoskeletal: No acute osseous abnormality. Bladder: Unremarkable Soft tissues: Unremarkable. IMPRESSION: 1. No acute pelvic finding. 2. No fractures or dislocations. 3. Mild arthritic changes right hip. All CT scans at this medical facility are performed using dose modulation techniques as appropriate t o a performed exam including the following: Automated exposure control was utilized; adjustment of th e MA and/or KV according to patient size; and use of iterative reconstruction technique.
[2024-09-28] MEDS ORDERED: HYDR-4902 PO (19:07)
[2024-09-28 19:48] VITALS: BP 126/77; PULSE 71; RESP 18; O2SAT 97
== END 2024-09-28 19:52 | disposition home or self-care (01) ==
LOC: EDBD 16:09 → EDUNIT# 16:09 → ER 16:09
DX: S70.02XA Contusion of left hip, initial encounter (principal); I10 Essential (primary) hypertension; E11.9 Type 2 diabetes mellitus without complications; F32.A Depression, unspecified; F41.9 Anxiety disorder, unspecified; F17.200 Nicotine dependence, unspecified, uncomplicated; Z79.84 Long term (current) use of oral hypoglycemic drugs; Z90.89 Acquired absence of other organs; Z98.51 Tubal ligation status; Z98.890 Other specified postprocedural states; W18.39XA Other fall on same level, initial encounter; Y93.89 Activity, other specified; Y92.89 Other specified places as the place of occurrence of the external cause; Y99.8 Other external cause status
CPT/HCPCS: 36415; 72192; 73502; 80048; 85025; 96374; 96375; 99285; J2270; J2405